=== PATIENT | female | born 1990 | race Hispanic/Latino ===

== ENCOUNTER 2019-06-04 20:38 | Emergency (ER) | payer SELFPAY ==
[2019-06-04] MEDS ORDERED: Ketorolac Tromethamine 60 MG/2 ML VIAL ONE (22:05)
[2019-06-04 22:36] LABS: Bilirubin Negative (Negative); Blood, Urine Negative (Negative); Clarity Clear (Clear); Glucose, Urine (Dipstick) Normal (Negative); Leukocyte 250 Leu/uL (Negative); Nitrite Negative (Negative); Protein, Urine (Dipstick) Negative (Neg-Trace); RBC/HPF 0-3 HPF (0-3); Squamous Epithelial 0-3 HPF (0-3); Urobilinogen Normal mg/dL (Less than 2)
[2019-06-04 22:37] LABS: Pregnancy Test - Urine (BHCG) Negative (Negative); Pregu Control Background? CLEAR/WHITE (CLR/WHITE); Pregu Control Bar Appear? YES (CONTROL BAR); Specific Gravity 1.008 (1.002-1.036)
[2019-06-04 22:43] LABS: Bacteria/HPF 1+ HPF (None Seen)
--- NOTE | 2019-06-04 22:48 | RAD ---
Exam: 3 views lumbar spine HISTORY: Left-sided flank pain and low back pain, x1 week COMPARISON: None FINDINGS: Pseudoarthrosis of the left L5 ala with the sacrum. Partial sacralization of L5. Lumbar spine vertebral body height is maintained. No fracture. No spondylolisthesis or spondylolysis. IMPRESSION: 1. No fracture. No severe loss of disc space height. 2. Partial sacralization of L5 with pseudoarthrosis of the left L5 ala and the sacrum.
== END 2019-06-04 23:00 | disposition home or self-care (01) ==
LOC: ERS 20:38
DX: N39.0 Urinary tract infection, site not specified (principal)
CPT/HCPCS: 72100; 81003; 81015; 81025; 96372; J1885

== ENCOUNTER 2019-06-20 17:34 | Inpatient (IN) | payer OTHER, SELFPAY ==
[2019-06-20] MEDS ORDERED: Ondansetron PF 4 MG/2 ML Vial ONE (18:29)
[2019-06-20] MEDS ORDERED: Morphine 4 MG/ML VIAL ONE ×2 (18:29→19:42)
[2019-06-20 18:56] LABS: #Basophils 0.1 thou/uL (0.0-0.2); #Eosinphils 0.4 thou/uL (0.0-0.7); #Lymphocytes 2.2 thou/uL (1.20-3.40); #Monocytes 0.6 thou/uL (0.11-0.59); #Neutrophils 5.6 thou/uL (1.40-6.50); %Basophils 0.7 % (0.0-1.0); %Eosinophils 4.8 % (0.0-10.0); %Lymphocytes 25.4 % (21.0-51.0); %Monocytes 6.5 % (0.0-10.0); %Neutrophils 62.7 % (42.0-75.0); Hemoglobin 15.4 g/dL (12.0-16.0); Mean Corpuscular HGB CONC 33.5 g/dL (32.0-36.0); Mean Corpuscular Hemoglobin 27.2 pg (27.0-31.0); Mean Corpuscular Volume 81.2 fL (78.0-98.0); Mean Platelet Volume 9.5 fL (7.4-10.4); Platelet Count 147 thou/uL (130-400); Red Blood Cell (RBC) Count 5.67 mill/uL (4.20-5.40); White Blood Cell (WBC) Count 8.9 thou/uL (4.8-10.8)
[2019-06-20 19:20] LABS: Bacteria/HPF None Seen HPF (None Seen); Bilirubin Negative (Negative); Blood, Urine Negative (Negative); Clarity Clear (Clear); Glucose, Urine (Dipstick) Normal (Negative); Leukocyte 75 Leu/uL (Negative); Nitrite Negative (Negative); Protein, Urine (Dipstick) Negative (Neg-Trace); RBC/HPF 0-3 HPF (0-3); Squamous Epithelial 0-3 HPF (0-3); Urobilinogen Normal mg/dL (Less than 2); WBC/HPF 0-3 HPF (0-3)
[2019-06-20 20:05] LABS: ALT (SGPT) 106 U/L (8-55); AST (SGOT) 131 U/L (5-34); Albumin 4.3 g/dL (3.5-5.0); Alkaline Phosphatase 88 U/L (40-110); Anion Gap 16 mmol/L (10-20); BUN (Urea Nitrogen) 6 mg/dL (7.0-18.7); Bilirubin, Total 0.6 mg/dL (0.2-1.2); Calc. Creatinine Clearance 0 mL/min (70-130); Carbon Dioxide 23 mmol/L (22-29); Chloride 102 mmol/L (98-107); Estimated GFR-MDRD 84; Globulin 3.2 g/dL (2.4-3.5); Glucose 83 mg/dL (70-105); Potassium 3.7 mmol/L (3.5-5.1); Protein, Total 7.5 g/dL (6.0-8.3); Sodium 137 mmol/L (136-145)
[2019-06-20 20:26] LABS: Calcium 12.2 mg/dL (7.8-10.44)
--- NOTE | 2019-06-20 20:31 | CT ---
CT CHEST, ABDOMEN AND PELVIS WITH IV CONTRAST: 06/20/19 INDICATIONS: Recent diagnosis of breast cancer. Back pain. Assess for metastasis. CT CHEST: The lung marc are well aerated and appear clear. No evidence of pulmonary mass or nodule. No infilt rate or effusion. Mediastinum unremarkable. A large mass in the right breast with low density center. This would correspond to the patient's hist ory of breast cancer. These findings may be postoperative if there has been recent surgery or biopsy. The findings may represent postoperative seroma or hematoma. If there has been no recent surgery, th e findings would be consistent with a large necrotic mass which measures up to 5 cm. Bone windows reveal several low density lytic type lesions involving the thoracic spine. These are sc attered throughout multiple thoracic vertebra and would be consistent with bony metastasis. IMPRESSION: 1. Large right breast mass as described above. 2. Evidence of bony metastasis involving the thoracic spine. 3. No acute lung process. CT ABDOMEN AND PELVIS: There are numerous low density lesions involving the liver which are too numerous to count and would be consistent with diffuse metastatic disease to the liver. These lesions measure up to 2.0 cm. Spleen and pancreas unremarkable. Adrenal glands and kidneys unremarkable. Small and large bowel loops unremarkable. Aorta unremarkable. No adenopathy. Images through the pelvis show unremarkable uterus and adnexa. Evidence of small right ovarian cysts. There is an umbilical hernia with mesenteric fat herniated through the small anterior abdominal wall defect. Review of bone windows show low density foci involving pelvis. Both iliac bones and sacrum show lesio ns. There are scattered low density lesions involving the lumbar vertebrae. IMPRESSION: 1. Evidence of diffuse hepatic metastatic disease. 2. Evidence of osseous metastasis involving numerous lumbar vertebrae and pelvis. 3. Small umbilical hernia. POS: OFF
[2019-06-20] MEDS ORDERED: Dexamethasone 10 MG/ML VIAL ONE (21:32)
--- NOTE | 2019-06-20 22:55 | PDOC.FPRHP ---
- History of Present Illness Chief Complaint: Back/Leg Pain History of Present Illness: Mrs. Lopez is a 28 y/o female who presents to the ED following increasing back back and leg weakness over the past month, with notable increase in pain over the past 2-3 days. She was diagnosed with breast cancer, with the primary mass occurring in her right breast, earlier in June 2019, and has since been followed by Dr. Strickland, and she intends to start chemotherapy soon. She states that her pain is currently poorly controlled with Tramadol 50 mg PO BID, and she most recently noticed a dramatic increase in pain in her back and legs, prompting her presentation to the ED. She admits to chronic fatigue, but denies recent fevers, chills, night sweats, changes in vision, chest pain, shortness of breath, N/V/D or loss of bowel or bladder function. Her family was present at the time of evaluation and assisted with the HPI when applicable. ED Course: CT Chest/ABD/Pelvis revealed multiple suspicious osseous and hepatic lesions. - Allergies/Adverse Reactions Allergies Allergy/AdvReac Type Severity Reaction Status Date / Time No Known Drug Allergies Allergy Unverified 06/20/19 23:37 - Home Medications Medication Instructions Recorded Confirmed Type No Known 06/20/19 06/20/19 History - History PMHx: None PSHx: None FHx: Social: Social EtOH. Denies tobacco and drug abuse. Code Status: Full - Review of Systems General: reports: fatigue. denies: fever/chills, weight/appetite/sleep changes , night sweats Eyes: denies: vision changes ENT: denies: nasal congestion, rhinorrhea Respiratory: reports: exercise intolerance. denies: cough, congestion, shortness of breath Cardiovascular: denies: chest pain, palpitation, edema, orthopnea Gastrointestinal: denies: nausea, vomiting, diarrhea, constipation, abdominal pain Genitourinary: denies: incontinence, dysuria, polyuria Skin: denies: rashes, lesions Musculoskeletal: reports: pain, tenderness, stiffness, arthritis/arthralgias Neurological: reports: weakness. denies: numbness, syncope - Vital signs BP: [124/88] HR: [105] RR: [22] Tmax: [97.7] Pox: [100]% on [Room Air] Wt: [ 78 kg] - Physical Exam Constitutional: NAD, awake, alert and oriented, well developed, other (Tired appearing.) HEENT: normocephalic and atraumatic, PERRLA, conjunctiva clear, no scleral icterus, grossly normal hearing, normal nasal mucosa, MMM, oropharynx clear, good dention Neck: supple, FROM, trachea midline, no LAD Chest: no-tender to palpation Heart: RRR, normal S1/S2, no murmurs/rubs/gallops, pulses present, no edema Lungs: CTAB, no respiratory distress, good air movement, no rales/rhonchi, no wheezing, no retractions Abdomen: soft, non-tender, bowel sounds present, no masses/distention, no hernias Musculoskeletal: normal structure, normal tone, ROM grossly normal Neurological: no focal deficit, normal sensation Skin: no rash/lesions, good turgor, capillary refill <2 seconds, no jaundice Heme/Lymphatic: no unusual bruising or bleeding, no purpura, no petechia, no LAD (No LAD in the Anterior Cervical Chains or Right Axilla.) Psychiatric: good judgment and insight, intact recent and remote memory, other ( Patient appeared significantly distressed by current situation.) FMR H&P: Results - Labs Result Diagrams: 06/20/19 18:47 06/20/19 19:35 Lab results: WBC 8.9 thou/uL (4.8-10.8) 06/20/19 18:47 Hgb 15.4 g/dL (12.0-16.0) 06/20/19 18:47 Hct 46.0 % (36.0-47.0) 06/20/19 18:47 MCV 81.2 fL (78.0-98.0) 06/20/19 18:47 Plt Count 147 thou/uL (130-400) 06/20/19 18:47 Neutrophils % 62.7 % (42.0-75.0) 06/20/19 18:47 Sodium 137 mmol/L (136-145) 19 19:35 Potassium 3.7 mmol/L (3.5-5.1) 06/20/19 19:35 Chloride 102 mmol/L (98-107) 06/20/19 19:35 Carbon Dioxide 23 mmol/L (22-29) 06/20/19 19:35 BUN 6 mg/dL (7.0-18.7) L 06/20/19 19:35 Creatinine 0.81 mg/dL (0.6-1.1) 06/20/19 19:35 Glucose 83 mg/dL (70-105) 06/20/19 19:35 Calcium 12.2 mg/dL (7.8-10.44) H* 06/20/19 19:35 Total Bilirubin 0.6 mg/dL (0.2-1.2) 06/20/19 19:35 AST 131 U/L (5-34) H 06/20/19 19:35 ALT 106 U/L (8-55) H 06/20/19 19:35 Alkaline Phosphatase 88 U/L (40-110) 06/20/19 19:35 Serum Total Protein 7.5 g/dL (6.0-8.3) 06/20/19 19:35 Albumin 4.3 g/dL (3.5-5.0) 06/20/19 19:35 Urine Ketones Negative mg/dL (Negative) 06/20/19 18:30 Urine Blood Negative (Negative) 06/20/19 18:30 Urine Nitrite Negative (Negative) 06/20/19 18:30 Ur Leukocyte Esterase 75 Lucrecia/uL (Negative) A 06/20/19 18:30 Urine RBC 0-3 HPF (0-3) 06/20/19 18:30 Urine WBC 0-3 HPF (0-3) 06/20/19 18:30 Ur Squamous Epith Cells 0-3 HPF (0-3) 06/20/19 18:30 Urine Bacteria None Seen HPF (None Seen) 06/20/19 18:30 FMR H&P: A/P - Problem List (1) Metastatic breast cancer Current Visit: Yes Status: Acute Code(s): C50.919 - MALIGNANT NEOPLASM OF UNSP SITE OF UNSPECIFIED FEMALE BREAST (2) Hypercalcemia Current Visit: Yes Status: Acute Code(s): E83.52 - HYPERCALCEMIA - Plan Patient is a 28 y/o female currently admitted to the Oncology Floor for intractable back pain and lower extremity weakness. 1. Metastatic Breast Cancer -Likely cause of aforementioned symptoms -No significant MSK or neurologic deficits noted on physical exam -CT Chest/ABD/Pelvis: Diffuse osseous and hepatic metastases -s/2 Morphine 4 mg IV x2 in ED -Started on Dexamethasone 4 mg Q6H, per Oncology Recs -MRI T-Spine / L-Spine (w/ and w/o Contrast): Pending, per Oncology recs -Tramadol 50 mg PO Q4H PRN for pain -Morphine 4 mg IV Q4H PRN for breakthrough pain -Oncology aware - recs appreciated 2. Hypercalcemia -Ca: 12.3 on 06/20/19 -Patient is currently asymptomatic -Consider IVF and Zoledronic Acid if patient develops symptoms PCP: [facility] (Dr. Strickland) Code: Full Diet: Heart Healthy incl. Low Sodium Activity: Ambulate w/ Assist VTE PPx: Lovenox 40 mg SC Daily w/ SCDs Dispo: Patient is currently stable on the Oncology Floor. Continue to manage pain and monitor electrolyte abnormalities. Await MRI results and Oncology recommendations. Expected LOS > 48H. FMR H&P: Upper Level - Pertinent history 28 y/o F PMHx Metastatic invasive ductal carcinoma of the breast that was recently diagnosed this past month presents to the ED complaining of left sided hip pain and back pain. She reports that she has been taking tramadol for pain, but today it did not cut it and the pain got so bad that she could not stand or walk well. She has known bony mets to thoracic and lumbar spines as well as pelvis. She was due this week to have an MRI performed, so Dr. Strickland requested this get performed while in the hospital. She has had regular periods, 3 vaginal deliveries. Has been on IUD and more recently has nexplanon in currently for contraception. Family history of breast cancer on fathers side and family history of cervical spine cancer in maternal grandmother. - Pertinent findings BP: 132/97, Pulse: 96, Resp: 18, Temp: 98.5, O2 sat: 98, weight 77kg PE: Gen - alert, oriented, resting comfortably in bed with no acute distress CV - RRR, no murmurs Lungs - CTAB, no wheezes Abd - soft, NTTP MSK - Left pelvis tender to palpation posteriorly and spinal tenderness CT chest/abd/pelvis: R breast mass, bony thoracic mets, diffuse hepatic metastatic disease, bony mets to lumbar spine and pelvis, small umbilical hernia - Plan Date/Time: 06/20/19 2255 IJody MD, PGY-3, have evaluated this patient and agree with findings/ plan as outlined by general internal medicine physician resident. Pertinent changes/additions are listed here. 1. Intractable pain 2/2 bony metastases Pt with invasive ductal carcinoma of R breast with mets to lymphatic system, liver, spine, pelvis, currently with back and pelvic pain. s/p 2 doses of morphine in ED. -Will obs on oncology -Dr. Strickland with onc has been notified and will be consulted in AM -Tramadol rosenda and morphine prn pain -Encourage po hydration 2. Invasive Ductal Carcinoma of breast Pt noticed breast mass in Mar and had diagnostic imaging followed by biopsy confirming diagnosis. She has been followed with Dr. Strickland, but further imaging was pending prior to initiation of therapy. -Will get MRI in AM per onc recs -Continue dexamethasone 4mg q6h -Consult Dr. Strickland in AM 3. Hypercalcemia 2/2 malignancy. Was 12.2, corrected 12.0, moderate hypercalcemia. Pt asymptomatic from this -Will monitor and treat if increases to severe range or develops symptoms 4. Transaminitis Pt with elevated AST and ALT, likely 2/2 liver mets -Monitor Dispo: Obs on onc LOS: likely less than 48 hours Addendum - Attending - Attending Attestation Date/Time: 06/20/19 [id number] I personally evaluated the patient and discussed the management with Dr. Muse and Dr. Mathis I agree with the History, Examination, Assessment and Plan documented above with any addition or exceptions noted below. 28 yo female with recent dx of invasive ductal carcinoma (ERPR negative , HER2 positive) presents for worsening pain. Patient reports increasing and unrelenting pain over the past few days. Has been seen by ONC. Plan to cotton scan and start treatment course soon. Imaging performed today and mets noted throughout. ONC notified by ER staff. Will admit for pain control and initiation of steroids. Will plan to perform MRI head to pelvis in AM. Patient evaluated in March with mass in right breast. Dx with invasive ductal carcinoma this month. Will continue IVFs to help with calcium level. Pain control. Imaging in AM. ONC following. Will determine plan with ONC in AM. Likely poor prognosis. Stephane
[2019-06-20] MEDS ORDERED: Acetaminophen 325 MG TAB PO PRN (23:30)
[2019-06-21 00:12] VITALS: BMI 27.6
[2019-06-21] MEDS: traMADol HCl 50 MG TAB PO SCH ×2 (00:30→05:12)
[2019-06-21] MEDS: Morphine 4 MG/ML VIAL SLOW IVP PRN ×3 (01:18→20:01)
[2019-06-21] MEDS ORDERED: Dexamethasone 4 MG TAB PO SCH (03:30)
[2019-06-21] MEDS: Dexamethasone 4 MG TAB PO SCH ×3 (05:16→17:48)
--- NOTE | 2019-06-21 05:51 | PDOC.FM ---
- Subjective Subjective: Patient resting comfortably in bed this morning, her mother is at bedside. Patient states she is having some back and left hip pain. Says current pain medication is controlling her pain, the pain starts to come back after about 4 hours, about the time she is due for next pain medication. Patient declines wanting any adjustment to her pain medication regimen at this time. Prior to this admission patient states she was not taking anything for pain. Recently did have ECHO completed with Dr. Strickland. Will have MRI completed today. Patient says she has some anxiety about this scan, also get claustrophobic in small spaces. - Objective Vital Signs & Weight: Vital Signs (12 hours) Temp Pulse Resp BP Pulse Ox 06/21/19 03:44 98.3 F 97 16 116/72 96 06/20/19 23:20 98.5 F 95 18 122/74 96 Weight Weight 77.56 kg Result Diagrams: 06/20/19 18:47 06/20/19 19:35 Phys Exam - Physical Examination Constitutional: NAD HEENT: moist MMs Neck: supple, full ROM Respiratory: no wheezing, no rales, no rhonchi, clear to auscultation bilateral Cardiovascular: RRR, no significant murmur Gastrointestinal: soft, no distention, positive bowel sounds mild TTP in RUQ, LUQ Musculoskeletal: no edema, pulses present Neurological: normal sensation, moves all 4 limbs Psychiatric: normal affect, A&O x 3 Skin: no rash, normal turgor Dx/Plan (1) Hypercalcemia Code(s): E83.52 - HYPERCALCEMIA Status: Acute (2) Metastatic breast cancer Code(s): C50.919 - MALIGNANT NEOPLASM OF UNSP SITE OF UNSPECIFIED FEMALE BREAST Status: Acute (3) Intractable pain Code(s): R52 - PAIN, UNSPECIFIED Status: Acute - Plan Plan: Patient is a 28 yo female with PMHx of metastatic breast cancer presents with intractable pain: #Intractable pain 2/2 bony metastases Pt with invasive ductal carcinoma of R breast with mets to lymphatic system, liver, spine, pelvis, currently with back and pelvic pain. s/p 2 doses of morphine in ED. -Dr. Strickland with oncology has been notified and will be consulted in AM -Tramadol prn and morphine 4 prn pain -Encourage po hydration #Invasive Ductal Carcinoma of breast Pt noticed breast mass in Mar and had diagnostic imaging followed by biopsy confirming diagnosis. She has been followed with Dr. Strickland, but further imaging was pending prior to initiation of therapy. -CT chest/abd/pelvis on 06/20: R breast mass, bony thoracic mets, diffuse hepatic metastatic disease, bony mets to lumbar spine and pelvis, small umbilical hernia -Will get MRI in AM per onc recs--ordered 1 mg Ativan to be given 30 min prior to exam -Continue Dexamethasone 4mg q6h -Consult Dr. Strickland in AM #Hypercalcemia 2/2 malignancy. Was 12.2, corrected 12.0, moderate hypercalcemia. Pt asymptomatic from this -Will monitor and treat if increases to severe range or develops symptoms #Transaminitis Pt with elevated AST and ALT, likely 2/2 liver mets -Monitor labs Diet: HH, Low Na VTE: Lovenox 40 Code status: FULL Dispo: Stable, admitted to observation on oncology unit. Continue pain control. Await results of MRI this morning. Oncology, Dr. Strickland consulted, appreciate recs. Anticipate discharge in <48 hrs. Addendum - Attending - Attending Attestation Date/Time: 06/21/19 [id number] I personally evaluated the patient and discussed the management with the team. I agree with the History, Examination, Assessment and Plan documented above with any addition or exceptions noted below.
[2019-06-21] MEDS: Famotidine 20 MG TAB PO SCH ×2 (08:02→20:01)
[2019-06-21] MEDS ORDERED: Lorazepam 2 MG/ML VIAL SLOW IVP SCH (08:15)
[2019-06-21] MEDS: Enoxaparin Sodium 40 MG/0.4 ML SYRINGE SC SCH (09:00)
[2019-06-21] MEDS ORDERED: traMADol HCl 50 MG TAB PO PRN (09:15)
[2019-06-21] MEDS: Zoledronic Acid 4 MG in Sodium Chloride 0.9% 100 ML IVPB SCH ×2 (10:00→12:06)
--- NOTE | 2019-06-21 10:13 | MRI ---
MR OF THE THORACIC SPINE WITH AND WITHOUT CONTRAST INDICATION: Metastatic breast cancer and back pain TECHNIQUE: Multiplanar multisequence MR images were obtained of the thoracic spine with and without c ontrast. Spine count series was provided. COMPARISON: CT of the chest, abdomen and pelvis dated June 20, 2019 FINDINGS: 15 cc of MultiHance was utilized for the examination. Bone marrow signal intensity: There is diffuse osseous metastatic disease involving the thoracic spin e with the most prominent lesion involving T11 where there is some posterior expansion of the posterior wall the T11 vertebral body without evidence of fracture. The lesion measures 2.3 cm in its greatest craniocaudad dimension and 2.9 cm in its greatest axial dimension. Spinal alignment: Normal Spinal cord: Normal signal intensity and contour. Paravertebral soft tissues: There are numerous lesions involving the liver consistent with hepatic me tastatic disease. Vertebral levels: T1-T2: No appreciable central canal or neural foraminal narrowing is evident. T2-T3: There is a small right paracentral protrusion without appreciable central canal or neural fora chavez narrowing. T3-T4: No appreciable central canal or neural foraminal narrowing.. T4-T5: No appreciable central canal or neural foraminal narrowing. T5-T6: No appreciable central canal or neural foraminal narrowing. T6-T7: No appreciable central canal or neural foraminal narrowing. T7-T8: No appreciable central canal or neural foraminal narrowing. T8-T9: No appreciable central canal or neural foraminal narrowing. T9-T10: No appreciable central canal or neural foraminal narrowing. T10-T11: No appreciable central canal or neural foraminal narrowing. T11-T12: No appreciable central canal or neural foraminal narrowing. T12-L1: No appreciable central canal or neural foraminal narrowing. Additional findings: There is diffuse osseous metastatic disease demonstrates heterogeneous enhancem ent IMPRESSION: 1. Diffuse osseous metastatic disease of the thoracic spine without evidence of pathologic fracture. The largest lesion is seen within T11 causing some mild posterior bowing of the T11 cortex. 2. Spinal cord demonstrates normal signal intensity and contour.
--- NOTE | 2019-06-21 10:16 | MRI ---
MRI LUMBAR SPINE WITH AND WITHOUT CONTRAST: DATE: 06/21/2019 HISTORY: 28-year-old female with metastatic breast cancer presents with intractable low back pain and left hip pain. COMPARISON: none TECHNIQUE: Multiple sequences obtained in axial and sagittal planes, pre and post IV injection of gadolinium-bas ed contrast agent. FINDINGS: There are transitional levels at the thoracolumbar junction and lumbosacral junction. Review of CT of chest abdomen and pelvis of 06/20/2019 demonstrates 12 fully formed bilateral Ribs, followed by an accessory right rib at the next level which will be designated as L1. The transitional level at the lumbosacral junction will be designated as L6,, with the dysplastic lef t transverse process completely fused with the left sacral ala, but no such finding on the right side. At the left side of the L2 superior endplate, there is minimal, shallow, broad-based depression, asso ciated with moderate-sized patch of bone marrow edema (STIR sagittal image 10 of 18, series 5). Vertebral body heights are otherwise maintained. There is a dextroscoliosis of the lumbar spine. No m ajor spondylolisthesis. Hypoplastic L6-S1 disc space. Disc desiccation without high-grade disc space narrowing of L5-6, where there is a small central disc protrusion which does not cause high-gra de central spinal canal stenosis or reji nerve root compression. There are mild to moderate bilateral degenerative facet changes at L4-5 and L5-6, with bilateral facet joint effusions. There is mild to moderate left neural foraminal stenosis at L5-6. Otherwise no high-grade neural foraminal stenosis at any other level. No central spinal canal stenosis at any level. Cauda equina is arranged in a symmetrical, normal distribution throughout the thecal sac. Conus medullaris terminates at L1-2. No abnormal enhancement or mass involving the intramedullary, extramedullary-intradural, extrad ural, or perivertebral, spaces. There are numerous focal metastatic lesions throughout all osseous structures. The largest lesion involves the L2 vertebral body. All of these enhance. No bony retropul curt. IMPRESSION: 1. Osseous metastatic disease throughout all visualized levels of the lumbar spine and sacrum. 2. No evidence of metastatic involvement within the spinal canal. 3. Lumbosacral transitional vertebra type III a involving L6-S1. 4. Mild degenerative disc disease at L6-S1. 5. Mild to moderate bilateral facet osteoarthrosis at L4-5 and L5-6. 6. Dextroscoliosis of lumbar spine. 7. Mild to moderate left neural foraminal stenosis at L5-6. 8. Otherwise no central spinal canal stenosis or high-grade neural foraminal stenosis at any level. 9. Possibility of a minimal pathologic compression fracture of the left superior endplate of L2. 10. No bony retropulsion.
--- NOTE | 2019-06-21 10:26 | MRI ---
MRI cervical spine with and without contrast: DATE: 06/21/2019 HISTORY: 28-year-old female with metastatic breast cancer and intractable cervicalgia. COMPARISON: None FINDINGS: On the sagittal sequences, there is an approximately 1 x 1.3 cm intrasellar mass. The anterior half o f it has material that is isointense to brain parenchyma on all pulse sequences, and enhances. The posterior aspect of this appears cystic, but contains tiny solid enhancing nodular components. The se lla turcica may or may not be minimally expanded. It may be at least mildly impinging on the optic chiasm. There are numerous small osseous enhancing metastatic lesions throughout all vertebral bodies of the cervical spine and upper thoracic spine. There is reversal of curvature, with apex of kyphosis at approximately C5, which abuts the ventral surface of the spinal cord. However, there is no significan t displacement of the spinal cord, no central spinal canal stenosis, no nerve root impingement, and no neural foraminal stenosis, at any level. No abnormal signal or abnormal enhancement involving the intramedullary, extramedullary-intradural, extradural, or perivertebral, spaces. No high-grade disc space narrowing. No high-grade facet DJD. Vertebral body heights are maintained. No bony retropulsion . Osseous metastatic involvement of the clivus and body of sphenoid bone.. IMPRESSION: 1. Enhancing pituitary mass. Possibilities include pituitary metastasis versus atypical pituitary mac roadenoma or craniopharyngioma. Possibility of mild impingement on optic chiasm. Recommend dedicated MRI of brain and sella with and without contrast. 2. Diffuse osseous skeletal metastasis throughout the cervical spine. 3. No pathologic fracture, central spinal canal stenosis, neural foraminal stenosis, or cord compress ion, at any level. No evidence of metastatic disease within the spinal canal.
[2019-06-21] MEDS ORDERED: traMADol HCl 50 MG TAB PO SCH (12:00)
[2019-06-21] MEDS: Sodium Chloride 0.9% 1,000 ML IV SCH ×2 (12:05→12:14)
[2019-06-21] MEDS: Lorazepam 2 MG/ML VIAL SLOW IVP SCH ×2 (12:12→15:02)
--- NOTE | 2019-06-21 15:36 | NM ---
WHOLE BODY BONE SCAN: HISTORY: Breast cancer RADIOPHARMACEUTICAL: 30 mCi technetium 99m-MDP injected intravenously COMPARISON: None CORRELATION: CT chest abdomen and pelvis of 06/20/2019 and MRI of the spine from today. FINDINGS: There are foci of increased uptake in the sacrum bilaterally consistent with metastatic disease. The remainder of the lesions seen on the CT scan and MRI do not demonstrate abnormal tracer localization likely due to the lytic nature. There scattered degenerative activity in the appendicular skeleton. Tracer excretion through the kidneys is within normal limits. IMPRESSION: Findings are consistent with osseous metastatic disease.
--- NOTE | 2019-06-21 16:19 | CON ---
DATE OF CONSULTATION: REASON FOR CONSULTATION: Breast cancer. HISTORY OF PRESENT ILLNESS: Ms. Lopez is a pleasant 28-year-old female, who was referred to our clinic for newly diagnosed breast cancer. She was in her usual state of health when she felt a palpable mass in her right breast in January of 2019. In May, she underwent a right breast ultrasound, which showed a large solid mass in the right lower quadrant. There was also enlarged lymph nodes in the right axilla. She underwent biopsy, and pathology showed ER/KS negative, HER-2 positive invasive ductal carcinoma. Her right axillary lymph node was biopsied and was positive for metastatic adenocarcinoma with breast primary. She was seen by Dr. Strickland and was to undergo further imaging for scanning. She did complain of back pain when she was seen by Dr. Strickland and was given a muscle relaxant and tramadol. She presented to the emergency room yesterday with intractable pain. She underwent a CT of the chest, abdomen, and pelvis, which showed diffuse liver metastasis as well as bony lesions. She had then undergone MRI of her cervical, thoracic, and lumbar spine confirming the bony lesions. On the cervical spine MRI, there was an enhancing pituitary mass. The patient is having no neurological symptoms. She complains of back pain only. She has been treated with morphine, which has managed her pain. PAST MEDICAL HISTORY: Newly diagnosed right breast cancer. PAST SURGICAL HISTORY: Breast biopsy. ALLERGIES: NO KNOWN DRUG ALLERGIES. HOME MEDICATIONS: Tramadol. FAMILY HISTORY: Her paternal grandfather had liver cancer. Maternal grandmother had an unknown type cancer of the spine. She has no family history of breast, ovarian, or uterine cancer. SOCIAL HISTORY: , has 3 children. Lives with her spouse and family. No alcohol, tobacco, or illicit drug use. REVIEW OF SYSTEMS: Positive for back pain. Otherwise, negative. PHYSICAL EXAMINATION: VITAL SIGNS: Temperature 98.7, pulse is 101, respiratory rate is 16, BP is 118/69. She is 98% on room air. GENERAL: Well-developed, well-nourished female, in no acute distress. HEENT: Normocephalic and atraumatic. Pupils are equal and reactive to light. NECK: Supple. CV: Regular rate and rhythm. LUNGS: Clear. ABDOMEN: Soft and nontender. Bowel sounds are positive. EXTREMITIES: No clubbing or cyanosis. SKIN: No rash. BREASTS: She has palpable right breast mass. NEUROLOGIC: Nonfocal. PSYCHIATRIC: She is alert, oriented, and appropriate. PERTINENT LABS AND X-RAYS: Current WBCs are 8.9, hemoglobin 15.4, hematocrit 46.0, platelet count is 147,000. She has 62% neutrophils, 25% lymphocytes. Sodium is 137, potassium 3.7, chloride 102, CO2 is 23, BUN is 6, creatinine 0.81, calcium 12.2, bilirubin 0.6, AST is 131, ALT is 106, alkaline phosphatase is 88, serum total protein is 7.5, albumin 4.3, globulin 4.2. UA is negative. Radiology, per HPI. ASSESSMENT: 1. Metastatic invasive ductal carcinoma of the right breast with liver and bony lesions. 2. Back pain secondary to bone lesions. 3. 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 4. Hypercalcemia. DISCUSSION: The patient will receive Zometa for her hypercalcemia. We will complete staging with a bone scan and echocardiogram. She will have a brain MRI to take a close look at the pituitary mass. Findings were discussed in detail with the patient and her family at bedside. The plan is to start treatment with Taxotere, carboplatin, Perjeta, and Herceptin as soon as she has been cleared. Case has been discussed in detail with Dr. Strickland. Thank you for the consult. Job ID: [id number]
[2019-06-21] MEDS ORDERED: diphenhydrAMINE 50 MG CAP PO PRN (17:57)
[2019-06-21] MEDS ORDERED: diphenhydrAMINE 12.5 MG/5 ML UDCUP PO PRN (17:57)
[2019-06-22] MEDS: Dexamethasone 4 MG TAB PO SCH ×4 (00:10→17:32)
[2019-06-22] MEDS: HYDROcodone/Acetaminophen 5/325 mg Tablet PO PRN ×4 (00:10→17:35)
[2019-06-22] MEDS: Sodium Chloride 0.9% 1,000 ML IV SCH ×2 (00:13→11:40)
[2019-06-22] MEDS ORDERED: Lorazepam 2 MG/ML VIAL SLOW IVP PRN (03:28)
[2019-06-22 04:19] LABS: ALT (SGPT) 73 U/L (8-55); AST (SGOT) 72 U/L (5-34); Alkaline Phosphatase 75 U/L (40-110); Anion Gap 14 mmol/L (10-20); BUN (Urea Nitrogen) 5 mg/dL (7.0-18.7); Bilirubin, Total 0.4 mg/dL (0.2-1.2); Calc. Creatinine Clearance 137 mL/min (70-130); Calcium 10.3 mg/dL (7.8-10.44); Carbon Dioxide 21 mmol/L (22-29); Chloride 110 mmol/L (98-107); Estimated GFR-MDRD Greater than 90; Glucose 162 mg/dL (70-105); Potassium 3.6 mmol/L (3.5-5.1); Sodium 141 mmol/L (136-145)
[2019-06-22] MEDS: Morphine 4 MG/ML VIAL SLOW IVP PRN (04:34)
--- NOTE | 2019-06-22 06:31 | PDOC.FM ---
- Subjective Subjective: Patient lying in bed, states her pain is controlled. When does have pain it is mostly located in her back and hips. Able to tolerate PO intake although appetite sometimes decreased. Patient and her mother were able to meet with electrophysiology nurse practitioner Father Robert yesterday which brought them great comfort. Patient's sister says their [place] electrophysiology nurse practitioner Father Lior is supposed to come visit today. Myself and Dr. Chiu had an extended discussion is had with patient and several family members this morning regarding patient's condition, results of imaging, goals of care, possible treatment options moving forward, and prognosis. Spent time answering both patient and family members questions as well as provide some supportive counseling. - Objective Vital Signs & Weight: Vital Signs (12 hours) Temp Pulse Resp BP Pulse Ox 06/22/19 03:38 98.5 F 81 16 134/83 97 06/21/19 23:36 97.9 F 76 16 128/82 97 06/21/19 20:00 98.3 F 100 16 118/80 97 Weight Weight 77.56 kg I&O: 06/20/19 06/21/19 06/22/19 06:59 06:59 06:59 Intake Total 360 Balance 360 Result Diagrams: 06/20/19 18:47 06/22/19 03:33 Phys Exam - Physical Examination Constitutional: NAD HEENT: moist MMs Neck: supple, full ROM Musculoskeletal: no edema, pulses present Neurological: normal sensation, moves all 4 limbs Psychiatric: A&O x 3 Deviation from normal: flat affect Skin: no rash, normal turgor Dx/Plan (1) Hypercalcemia Code(s): E83.52 - HYPERCALCEMIA Status: Acute (2) Metastatic breast cancer Code(s): C50.919 - MALIGNANT NEOPLASM OF UNSP SITE OF UNSPECIFIED FEMALE BREAST Status: Acute (3) Intractable pain Code(s): R52 - PAIN, UNSPECIFIED Status: Acute - Plan Plan: Patient is a 28 yo female with PMHx of metastatic breast cancer presents with intractable pain: #Intractable pain 2/2 bony metastases Pt with invasive ductal carcinoma of R breast with mets to lymphatic system, liver, spine, pelvis, currently with back and pelvic pain. s/p 2 doses of morphine in ED. -Dr. Strickland with oncology consulted, appreciate recs -Tramadol prn and morphine 4 prn pain -Encourage po hydration -MRI cervical/thoracic/lumbar spine on 06/21 consistent with findings on CT with bony metastases in every vertebral level, additionally mass seen within pituitary with recommended f/u brain MRI to be performed on 06/22 #Invasive Ductal Carcinoma of breast Pt noticed breast mass in Sept and had diagnostic imaging followed by biopsy confirming diagnosis. She has been followed with Dr. Strickland, but further imaging was pending prior to initiation of therapy. -CT chest/abd/pelvis on 06/20: R breast mass, bony thoracic mets, diffuse hepatic metastatic disease, bony mets to lumbar spine and pelvis, small umbilical hernia -MRI spine as above, MRI brain today--ordered 1 mg Ativan to be given 30 min prior to exam -Continue Dexamethasone 4mg q6h -Consult Oncology, Dr. Strickland--appreciate recs. Patient to be started on chemotherapy regimen, will need to be scheduled for mediport placement with Dr. Winter as an outpatient. Patient has not been financially cleared to start chemo at hospital, anticipate approval next week and then will start treatment. If brain mets seen today then will possibly receive radiation first. -ECHO: EF 50-55% #Hypercalcemia 2/2 malignancy. Was 12.2, corrected 12.0, moderate hypercalcemia. Pt asymptomatic from this. As of 06/22, Calcium 10.3 -Will monitor AM BMP and treat if increases to severe range or develops symptoms -PTH 6.0 (low) -Vitamin D 11.5 (low), plan to start vitamin D supplementation today #Transaminitis Pt with elevated AST and ALT, likely 2/2 liver mets -Monitor labs, trending down Diet: HH, Low Na VTE: Lovenox 40 Code status: FULL Social: Continue to provide support to patient, answer questions as they arise. Will plan to have another family meeting in early afternoon once her parents and can come to the hospital. Dispo: Stable, admitted to inpatient on oncology unit. Continue pain control. Await results of MRI this morning. Oncology, Dr. Strickland consulted, appreciate recs. Anticipate discharge after imaging studies completed today.
[2019-06-22 08:47] VITALS: BP 125/80
[2019-06-22] MEDS ORDERED: Polyethylene Glycol 3350 17 GM Packet PO SCH (09:00)
[2019-06-22] MEDS ORDERED: Calcitonin,Salmon,Synthetic 200 Units 3.7 ML PUMP L NARE SCH (10:00)
[2019-06-22] MEDS: Famotidine 20 MG TAB PO SCH (10:06)
[2019-06-22] MEDS: Enoxaparin Sodium 40 MG/0.4 ML SYRINGE SC SCH (10:07)
--- NOTE | 2019-06-22 11:03 | MRI ---
MRI BRAIN AND SELLA WITH AND WITHOUT CONTRAST: 06/22/2019 HISTORY: A 28-year-old female with metastatic breast cancer (diffuse skeletal metastasis). Intrasellar mass fo und on recent cervical spine MRI. TECHNIQUE: Multiplanar, multisequence MRI of the whole brain, plus additional thin slices through the sella turc ica, obtained pre and post IV injection of 7 mL of MultiHance Gadolinium-based contrast agent. FINDINGS: Osseous metastatic lesions involving the body of the sphenoid bone and the upper cervical vertebrae a re again noted. There is an approximately 1.4 x 1.9 x 1.1 cm mass filling the sella turcica. The sell a is not greatly expanded. Suprasellar component of the mass abuts the undersurface of the optic yan sm and mildly displaces it superiorly. The solid component of the tumor is T1, T2 and FLAIR isointens e relative to brain parenchyma, and moderately enhances. There is an approximately 0.8 x 1.2 x 0.6 cm component located posteriorly, which is very T2 hyperintense, very FLAIR hyperintense, and of mixed signal intensity on pre-contrast T1 WI, including T1 hyperintensity. This component has little or no enhancement. It appears to be cystic but filled with either hemorrhagic products or proteinaceous pro ducts. There are also tiny nodular components within this complex cystic component. There is no invasion of the tumor into the cavernous sinuses. Meckel's caves and the basal cisterns a re clear. The ventricles are normal in size and configuration. No abnormal intraaxial signal, mass, e nhancement, mass effect, midline shift or extraaxial fluid collection. IMPRESSION: 1. Intrasellar mass with a suprasellar component mildly impinging on the optic chiasm. The mass has s olid and complex cystic components. 2. Differential diagnosis is craniopharyngioma, pituitary macroadenoma with a cystic or hemorrhagic c omplex component, and metastatic lesion. POS: CET
[2019-06-22 15:03] LABS: Free T4 (Free Thyroxine) 0.45 ng/dL (0.70-1.48)
[2019-06-22 17:09] VITALS: TEMP 98.4
== END 2019-06-22 17:55 | disposition home or self-care (01) | DRG 948 ==
LOC: ERS 17:34 → OBSVTOIN 21:56 → ONC 21:56
PROVIDERS: ADMIT Student in an Organized Health Care Education/Training Program; ATTEND Student in an Organized Health Care Education/Training Program
DX: G89.3 Neoplasm related pain (acute) (chronic) (principal); C78.7 Secondary malignant neoplasm of liver and intrahepatic bile duct; C79.51 Secondary malignant neoplasm of bone; C77.9 Secondary and unspecified malignant neoplasm of lymph node, unspecified; C50.911 Malignant neoplasm of unspecified site of right female breast; E83.52 Hypercalcemia; Z80.3 Family history of malignant neoplasm of breast; Z80.8 Family history of malignant neoplasm of other organs or systems; E23.7 Disorder of pituitary gland, unspecified
CPT/HCPCS: 36415; 70553; 71260; 72156; 72157; 72158; 74177; 78306; 80053; 81003; 81015; 82306; 83970; 84146; 84436; 84439; 84443; 84481; 85025; 93005; 93306; 94760; 96361; 96374; 96375; 96376; A9503; J1100; J1650; J2060; J2270; J2405; J3489; J3490; J8540; Q0163

== ENCOUNTER 2019-07-06 06:01 | Day surgery (SDC) | payer MEDICAID, OTHER ==
[2019-07-05 12:03] VITALS: BMI 27.6
[2019-07-06] MEDS ORDERED: Fentanyl 100 MCG/2 ML VIAL ONE (06:09)
[2019-07-06] MEDS ORDERED: Lidocaine 2% Jelly 5 ML TUBE ONE (06:10)
[2019-07-06] MEDS ORDERED: Propofol 500 MG/50 ML VIAL ONE (06:10)
[2019-07-06 06:34] LABS: #Lymphocytes 1.1 thou/uL (1.20-3.40); #Monocytes 0.3 thou/uL (0.11-0.59); #Neutrophils 1.6 thou/uL (1.40-6.50); %Basophils 0.3 % (0.0-1.0); %Eosinophils 0.4 % (0.0-10.0); %Lymphocytes 35.8 % (21.0-51.0); %Monocytes 8.5 % (0.0-10.0); %Neutrophils 55.1 % (42.0-75.0); Hemoglobin 13.7 g/dL (12.0-16.0); Mean Corpuscular HGB CONC 32.2 g/dL (32.0-36.0); Mean Corpuscular Hemoglobin 26.3 pg (27.0-31.0); Mean Corpuscular Volume 81.8 fL (78.0-98.0); Mean Platelet Volume 8.6 fL (7.4-10.4); Platelet Count 227 thou/uL (130-400); RBC Distribution Width 12.3 % (11.5-14.5); Red Blood Cell (RBC) Count 5.21 mill/uL (4.20-5.40)
[2019-07-06] MEDS ORDERED: EPINEPHrine 1 MG/ML AMP ONE (06:38)
[2019-07-06] MEDS ORDERED: Lidocaine 2% PF 5 ML VIAL ONE (06:38)
[2019-07-06] MEDS ORDERED: Bupivacaine 0.25% HCL 30 ML VIAL ONE (06:38)
[2019-07-06 06:40] LABS: BHCG - Serum Negative (NEGATIVE); Pregs Control Background? CLEAR/WHITE (CLR/WHITE); Pregs Control Bar Appear? YES (CONTROL BAR)
[2019-07-06 06:51] LABS: Anion Gap 11 mmol/L (10-20); BUN (Urea Nitrogen) 14 mg/dL (7.0-18.7); Calc. Creatinine Clearance 152 mL/min (70-130); Calcium 8.2 mg/dL (7.8-10.44); Carbon Dioxide 23 mmol/L (22-29); Chloride 110 mmol/L (98-107); Estimated GFR-MDRD Greater than 90; Glucose 111 mg/dL (70-105); Potassium 4.1 mmol/L (3.5-5.1); Sodium 140 mmol/L (136-145)
[2019-07-06] MEDS ORDERED: Midazolam HCl 2 mg/2 ml Vial ONE (07:11)
[2019-07-06] MEDS ORDERED: Hydrocortisone Sod Succ/PF 100 mg/2 ml Vial ONE (08:25)
--- NOTE | 2019-07-06 09:14 | RAD ---
EXAM: XR Chest 1 View Portable PROVIDED CLINICAL HISTORY: Mediport placement COMPARISON: None FINDINGS: Cardiac and mediastinal silhouette is within normal limits. Bibasilar subsegmental atelectatic change . Left subclavian implanted port is noted, with tip projecting expected location of cavoatrial junction. No pleural fluid or pneumothorax apparent. IMPRESSION: No evidence for an acute cardiopulmonary process.
--- NOTE | 2019-07-11 15:46 | PDOC.OP ---
Operative Note - Operative Note Operative Note: PROCEDURE: Left subclavian MediPort placement with fluoroscopic guidance DATE OF PROCEDURE: 07/06/2019 SURGEON: Redd Winter M.D. PREOPERATIVE DIAGNOSIS: Breast cancer POSTOPERATIVE DIAGNOSIS: Breast cancer HISTORY: Patient has been diagnosed with metastatic right breast cancer. Chemotherapy has been recommended and a Mediport has been requested for this. OPERATIVE PROCEDURE IN DETAIL: After informed consent was obtained and appropriate preoperative antibiotics administered, the patient was taken to the operating room and placed in supine position and monitored anesthesia care was administered. The patient was then placed in Trendelenburg position and the subclavian vein accessed easily on the first attempt with excellent flow of dark venous non-pulsatile blood. A wire threaded easily and was confirmed to be in the superior vena cava by fluoroscopy. Additional local anesthesia was infused to the skin and subcutaneous tissues lateral and inferior to the access site. The skin incision was extended from the wire laterally and a subcutaneous pocket developed inferiorly. A Mediport was obtained and confirmed to fit in the subcutaneous pocket. This was secured inferiorly to the pectoralis fascia with a Prolene suture, which was clamped, but not tied. The dilator and sheath were then placed over the wire and the dilator and wire removed leaving the sheath in place. The clamped MediPort tubing was tunneled through the sheath, which was then split and removed leaving the MediPort tubing in place. The tubing was adjusted until the tip was confirmed by fluoroscopy to be in the superior vena cava just above the atrium. The tubing was clamped at the skin level and cut and the tubing secured to the port, which was then placed in the subcutaneous pocket. The previously placed suture was secured and two additional sutures were placed to fix the port in place within the pocket. The port was aspirated with the Lopez needle and had excellent flow of dark venous non-pulsatile blood and easily flushed without resistance. The subcutaneous tissues were closed with a running Monocryl suture , following which the skin was closed with a running subcuticular Monocryl suture. Dermabond dressings were placed and the hub was again accessed through the skin and confirmed to easily aspirate and easily flush. The course of the catheter was confirmed by fluoroscopy to be smooth with the tip appropriately located in the superior vena cava. The patient was taken back to the day stay unit in good condition. Estimated blood loss was minimal. There were no complications. There were no specimens.
== END 2019-07-06 10:03 | disposition home or self-care (01) ==
LOC: SDC 06:01
PROVIDERS: ATTEND Surgery
PROC: 02HV33Z Insertion of Infusion Device into Superior Vena Cava, Percutaneous Approach (ICD-10-PCS; principal; 2019-07-06)
DX: C50.911 Malignant neoplasm of unspecified site of right female breast (principal)
CPT/HCPCS: 36415; 71045; 80048; 84703; 85025; C1788; J0171; J0690; J1642; J1720; J2001; J2250; J2704; J3010; S0020

== ENCOUNTER 2019-07-20 11:44 | Day surgery (SDC) | payer MEDICAID, SELFPAY ==
[~2019-07-20 11:44] MED LIST: DOCEtaxel 140 MG in Sodium Chloride 0.9% 250 ML 250 ML IVPB SCH; Palonosetron HCl 0.25 MG in Sodium Chloride 0.9% 50 ML IVPB SCH; Pertuzumab 840 MG in Sodium Chloride 0.9% 250 ML 250 ML IVPB SCH; SODIUM CHLORIDE 0.9% IVPB SCH; TRASTUZUMAB ANNS IVPB SCH; Zoledronic Acid 4 MG in Sodium Chloride 0.9% 100 ML IVPB SCH; diphenhydrAMINE 50 MG in Sodium Chloride 0.9% 50 ML IVPB SCH
[2019-07-20] MEDS ORDERED: Sodium Chloride 0.9% 20 ML ONE (11:55)
[2019-07-20 12:27] VITALS: BP 123/91; TEMP 98.4
[2019-07-20] MEDS ORDERED: SODIUM CHLORIDE 0.9% IV ONE (12:59)
[2019-07-20] MEDS ORDERED: TRASTUZUMAB ANNS IV ONE (12:59)
== END 2019-07-20 16:33 | disposition home or self-care (01) ==
LOC: ONC/OP 11:44
PROVIDERS: ATTEND Internal Medicine Hematology & Oncology
DX: Z51.11 Encounter for antineoplastic chemotherapy (principal); C50.511 Malignant neoplasm of lower-outer quadrant of right female breast
CPT/HCPCS: 36415; 80053; 82248; 83615; 84100; 84443; 84550; 96375; 96413; 96417; J1100; J1200; J1642; J2469; J3489; J3490; J7050; J9171; J9306; Q5117

== ENCOUNTER 2019-08-10 12:01 | Day surgery (SDC) | payer MEDICAID ==
[~2019-08-10 12:01] MED LIST changes: +Pertuzumab 420 MG in Sodium Chloride 0.9% 250 ML 250 ML IVPB SCH; -Pertuzumab 840 MG in Sodium Chloride 0.9% 250 ML 250 ML IVPB SCH; -Zoledronic Acid 4 MG in Sodium Chloride 0.9% 100 ML IVPB SCH; -diphenhydrAMINE 50 MG in Sodium Chloride 0.9% 50 ML IVPB SCH
== END 2019-08-10 15:35 | disposition home or self-care (01) ==
LOC: ONC/OP 12:01
PROVIDERS: ATTEND Internal Medicine Hematology & Oncology
DX: Z51.11 Encounter for antineoplastic chemotherapy (principal); C50.511 Malignant neoplasm of lower-outer quadrant of right female breast; E83.52 Hypercalcemia
CPT/HCPCS: 36415; 80053; 82248; 83615; 84100; 84550; 86300; 96375; 96413; 96417; J1100; J2469; J7050; J9171; J9306; Q5117

== ENCOUNTER 2019-08-31 08:59 | Day surgery (SDC) | payer MEDICAID ==
[~2019-08-31 08:59] MED LIST changes: +Zoledronic Acid 4 MG in Sodium Chloride 0.9% 100 ML IVPB SCH
[2019-08-31] MEDS ORDERED: Sodium Chloride 0.9% 20 ML ONE (09:18)
== END 2019-08-31 16:04 | disposition home or self-care (01) ==
LOC: ONC/OP 08:59
PROVIDERS: ATTEND Internal Medicine Hematology & Oncology
DX: Z51.11 Encounter for antineoplastic chemotherapy (principal); C50.511 Malignant neoplasm of lower-outer quadrant of right female breast; E83.52 Hypercalcemia
CPT/HCPCS: 96367; 96375; 96413; 96417; J1100; J1642; J2469; J3489; J3490; J7050; J9171; J9306; Q5117

== ENCOUNTER 2019-09-19 08:04 | Outpatient (CLI) | payer OTHER ==
--- NOTE | 2019-09-19 09:24 | CT ---
CT Chest Abd Pelvis W Con HISTORY: Breast cancer with liver and bone metastases. Follow-up. COMPARISON: 06/20/2019 study. FINDINGS: The lungs are clear of any infiltrative process. No pulmonary nodules are identified. There is no significant mediastinal or hilar lymphadenopathy. Right breast mass is no longer appreciated. CT of abdomen performed with contrast enhancement: There is been a significant improvement in the ancelmo earance of the hepatic metastatic disease. Numerous liver lesions were previously demonstrated with central necrotic components now the findings are largely related to the almost a cystic appearance of small subcentimeter nodules. As an example within the posterior aspect of the right lower lobe there is a 1.8 cm nodule now measuring 6 mm in size. There is similar improvement to all of the liver lesions. The spleen pancreas and gallbladder regions all appear unremarkable. Right and left adrenal glands and right and left kidneys are normal in size. There is no significant periaortic or mesenteric lymphadenopathy. CT of pelvis performed with contrast enhancement: A fat-containing paraumbilical hernia is seen. No p elvic lymphadenopathy or mass. Review of osseous structures once again show numerous mainly lytic appearing bone lesions. These lyti c bone lesions now has some more sclerotic components to the margins suggesting underlying therapeutic response. IMPRESSION: 1. Significant improvement to the hepatic lesions. There is been a marked decrease in size with a sig nificant decrease in the solid appearing component, small almost cystic appearance areas are now present replacing the larger hepatic lesions. 2. Sclerotic bony changes developing with the lytic bone lesions also suggesting therapeutic response .
--- NOTE | 2019-09-19 10:20 | MRI ---
Exam: Brain MRI with and without contrast HISTORY: Benign neoplasm of the pituitary gland. History of breast cancer. COMPARISON: 06/22/2019 FINDINGS: Brain MRI: Hemorrhage: No parenchymal hemorrhage. No extra-axial hematoma. Calvarium: Appropriate T1 marrow signal intensity Midline brain parenchyma: Unremarkable Cerebrum:No parenchymal mass, mass effect or midline shift. Brain volume, age-appropriate. Cortical g ray-white matter differentiation is preserved. No significant T2 or FLAIR white matter hyperintensities. There is a solitary FLAIR hyperintensity along the left periventricular white matte r adjacent to the occipital horn and posterior body left lateral ventricle. Ventricles: No evidence of hydrocephalus. Sinuses and mastoid air cells: Adequate aeration Diffusion: Central arterial flow is maintained. Absent restricted diffusion. Postcontrast images:Interval development of a. 0.3 x 0.4 cm enhancing focus involving the left cerebe llar hemisphere. No associated restricted diffusion.. Pituitary MRI: Previously noted sellar/suprasellar enhancing focus is no longer evident. Previously n oted mass effect upon the optic Ozment prechiasmatic optic nerve is resolved. No abnormal signal intensity in the visualized optic nerves. Pituitary stalk is midline. Normal pituitary bright spot. N o evidence of a macroadenoma. Postcontrast images do not demonstrate a microadenoma. IMPRESSION: 1. 0.4 x 0.3 cm enhancing focus in the left cerebellar hemisphere, not definitively appreciated on th e previous exam.. 2. Nonspecific left periventricular white matter FLAIR hyperintensity. No associated restricted diffu curt or enhancement. 3. Interval resolution of previously noted sellar/suprasellar mass.
[2019-09-19] MEDS ORDERED: Iopamidol 370 76% 100 ML VIAL ONE (14:47)
[2019-09-19] MEDS ORDERED: Magnevist 469MG/ML 20 ML VIAL ONE (15:01)
== END 2019-09-19 08:05 | disposition home or self-care (01) ==
LOC: CT 08:04
PROVIDERS: ATTEND Internal Medicine Hematology & Oncology
DX: C50.511 Malignant neoplasm of lower-outer quadrant of right female breast (principal); C79.51 Secondary malignant neoplasm of bone; D35.2 Benign neoplasm of pituitary gland; C78.7 Secondary malignant neoplasm of liver and intrahepatic bile duct; K76.9 Liver disease, unspecified; M89.9 Disorder of bone, unspecified; R90.89 Other abnormal findings on diagnostic imaging of central nervous system
CPT/HCPCS: 70553; 71260; 74177; A9579; Q9967

== ENCOUNTER 2019-10-17 11:37 | Outpatient (CLI) | payer OTHER ==
[~2019-10-17 11:37] MED LIST changes: -DOCEtaxel 140 MG in Sodium Chloride 0.9% 250 ML 250 ML IVPB SCH; +Magnevist 469MG/ML 20 ML VIAL ONE; -Palonosetron HCl 0.25 MG in Sodium Chloride 0.9% 50 ML IVPB SCH; -Pertuzumab 420 MG in Sodium Chloride 0.9% 250 ML 250 ML IVPB SCH; -SODIUM CHLORIDE 0.9% IVPB SCH; -TRASTUZUMAB ANNS IVPB SCH; -Zoledronic Acid 4 MG in Sodium Chloride 0.9% 100 ML IVPB SCH
--- NOTE | 2019-10-17 15:42 | MRI ---
MRI OF BRAIN WITH AND WITHOUT CONTRAST: INDICATION: Malignant neoplasm right breast. Brain lesion seen on prior study. Benign neoplasm of pituitary gla nd. COMPARISON: Comparison is made to MRI of brain 09/19/2019 and 06/22/2019. FINDINGS: Ventricles remain normal size and position. There is no evidence of restricted diffusion. No mass o r edema on FLAIR sequence. Periventricular white matter signal adjacent to the posterior horn is sta ble from prior exam. The pituitary and sella appear unremarkable. A pituitary protocol was followed with axial and sagittal images through the sella turcica with dynam ic enhancement. The pituitary appears normal with normal enhancement. There is no change in the pit uitary from the exam of 09/19/2019. Review of the postcontrast images again shows a small focus of enhancement involving the superior cor tanmay of the left cerebellum unchanged in appearance from 09/19/2019. This continues to measure in the 4 mm range. No other focus of enhancement identified. No interval change from 09/19/2019. IMPRESSION: Stable MRI findings when compared to 09/19/2019. The tiny focus of enhancement in the cortex of the s uperior left cerebellum is unchanged in appearance. No other enhancing abnormality identified. POS: [facility]
== END 2019-10-17 11:38 | disposition home or self-care (01) ==
LOC: MRI 11:37
PROVIDERS: ATTEND Internal Medicine Hematology & Oncology
DX: Z51.11 Encounter for antineoplastic chemotherapy (principal); C50.511 Malignant neoplasm of lower-outer quadrant of right female breast; D35.2 Benign neoplasm of pituitary gland; R93.7 Abnormal findings on diagnostic imaging of other parts of musculoskeletal system; R90.89 Other abnormal findings on diagnostic imaging of central nervous system; Z79.899 Other long term (current) drug therapy
CPT/HCPCS: 70553; 93306; A9579

== ENCOUNTER 2019-12-25 13:31 | Outpatient (CLI) | payer OTHER ==
[2019-12-25] MEDS ORDERED: Magnevist 469MG/ML 20 ML VIAL ONE (15:35)
--- NOTE | 2019-12-25 16:02 | MRI ---
Exam: Brain MRI with and without contrast HISTORY: Malignant neoplasm of lower quadrant of right humeral breast. Hypercalcemia. Benign neoplasm of the pituitary gland. COMPARISON: 10/17/2019, 09/19/2019 FINDINGS: Brain MRI: Hemorrhage: No parenchymal hemorrhage or extra-axial hematoma Calvarium: Appropriate T1 marrow signal intensity Midline brain parenchyma: Unremarkable Cerebrum:No parenchymal mass, mass effect or midline shift. Brain volume, age-appropriate. Cortical g ray-white white matter differentiation is preserved. No significant T2 or FLAIR white matter hyperintensities. Ventricles: No evidence of hydrocephalus. Cerebellum: Subtle multifocal new T2 and FLAIR hyperintensities. Sinuses and mastoid air cells: Adequate aeration Diffusion: Central arterial flow is maintained. Absent restricted diffusion. Postcontrast images:Interval development of a solitary enhancing focus in the lower right frontal sub cortical white matter measuring 0.3 cm. Interval development of multifocal enhancing lesions throughout the entire cerebellum including the cerebellar vermis. [employer] lesion in the left c erebellar hemisphere measures 0.9 x 0.7 cm. Pituitary MRI: Stable partially empty sella. There is no evidence of a microadenoma or macroadenoma. No mass effect upon the optic chiasm and prechiasmatic optic nerve. Pituitary stalk is midline. IMPRESSION: 1. No evidence of a lesion in the sella or suprasellar region. 2. Extensive posterior fossa metastases which has developed since the previous examination. There are numerous enhancing foci throughout the cerebellum. 3. Interval development of a enhancing focus in the right frontal cortex.
== END 2019-12-25 13:32 | disposition home or self-care (01) ==
LOC: MRI 13:31
PROVIDERS: ATTEND Internal Medicine Hematology & Oncology
DX: C50.511 Malignant neoplasm of lower-outer quadrant of right female breast (principal); D35.2 Benign neoplasm of pituitary gland; R90.89 Other abnormal findings on diagnostic imaging of central nervous system; C79.31 Secondary malignant neoplasm of brain
CPT/HCPCS: 70553; A9579

== ENCOUNTER 2020-01-21 09:03 | Outpatient (CLI) | payer OTHER ==
--- NOTE | 2020-01-21 12:38 | CT ---
CT CHEST AND ABDOMEN AND PELVIS WITH IV CONTRAST: Oral contrast was administered. Multiplanar reconstruction. INDICATION: Breast cancer with mets to bone and liver. Status post chemo and radiation. COMPARISON: Comparison is made to CT chest, abdomen, and pelvis 09/19/2019. FINDINGS: CT CHEST: Lung marc remain clear. A tiny 3 mm nodule in the peripheral right upper lobe near the fissure is stable. Mild interstitial prominence is again noted, stable. No effusion or infiltrate. The mediastinum is unremarkable. No adenopathy. There are scattered lytic lesions involving the visualized vertebrae. These are most prominent at th e T12 and T11 vertebrae. These lytic foci with central sclerosis appear stable from the prior exam. No new osseous lesion identified. IMPRESSION: Stable chest CT. CT ABDOMEN AND PELVIS: The numerous low-density liver lesions described previously continue to decrease in number. There ar e a few scattered low-density foci today, although there is significant reduction in number and size of the liver lesions. The visualized lesions today are predominantly subcentimeter with 1 or 2 measu ring in the 1.0 cm range in the axial projection. The spleen and pancreas are unremarkable. Stomach and duodenum unremarkable. Adrenal glands normal. Kidneys unremarkable. Small and large bowel loops unremarkable. The anterior abdominal wall herni a at the umbilicus is again noted and unchanged. Images through the pelvis are unremarkable. Uterus and adnexa unremarkable. Osseous structures unremarkable. There are scattered lytic foci involving the lumbar vertebrae. End plate deformities at L2 and L3 vertebrae are stable. No new lytic or sclerotic bone lesion. IMPRESSION: 1. Continued improvement in the number and size of liver lesions when compared to 09/19/2019. 2. Scattered osseous lesions appear stable. POS: AH
[2020-01-21] MEDS ORDERED: Iopamidol 370 76% 50 ML VIAL FS ONE (13:28)
[2020-01-21] MEDS ORDERED: Iopamidol 370 76% 100 ML VIAL ONE (13:28)
--- NOTE | 2020-01-21 14:10 | NM ---
WHOLE BODY BONE SCAN: HISTORY: Breast cancer RADIOPHARMACEUTICAL: 30 mCi technetium 99m-MDP injected intravenously COMPARISON:06/21/2019 CORRELATION: CT scan of the chest, abdomen and pelvis from today FINDINGS: Increased uptake in the sacrum bilaterally is again seen. There is heterogeneity in the appearance of the ribs. Focally increased uptake in the right second costochondral chondral junction is a benign finding. Focally increased uptake in the right mandible is consistent with periodontal disease. There scattered degenerative activity in the appendicular skeleton. Tracer excretion through the kidneys is within normal limits. IMPRESSION: Stable osseous metastatic disease.
== END 2020-01-21 09:04 | disposition home or self-care (01) ==
LOC: CT 09:03
PROVIDERS: ATTEND Internal Medicine Hematology & Oncology
DX: C50.511 Malignant neoplasm of lower-outer quadrant of right female breast (principal); C79.51 Secondary malignant neoplasm of bone; C78.7 Secondary malignant neoplasm of liver and intrahepatic bile duct; K76.9 Liver disease, unspecified; M89.9 Disorder of bone, unspecified
CPT/HCPCS: 71260; 74177; 78306; A9503

== ENCOUNTER 2020-04-15 08:37 | Outpatient (CLI) | payer OTHER ==
--- NOTE | 2020-04-15 11:05 | CT ---
CT CHEST AND ABDOMEN AND PELVIS WITH IV CONTRAST: Oral contrast was given. Multiplanar reconstruction. INDICATION: Breast cancer. Liver and bone mets. COMPARISON: CT chest, abdomen, and pelvis dated 01/21/2020. FINDINGS: CT CHEST: Lung marc remain clear. No infiltrate or effusion. No pulmonary mass or nodule. Mediastinum is unre markable. No adenopathy. No axillary adenopathy. Nonspecific axillary lymph nodes are stable. Vertebr al bodies maintain height and alignment. End plate deformities are again seen at T7. The lytic foci a t T11 and T12 with central sclerosis appears stable. IMPRESSION: Stable chest CT findings. CT ABDOMEN AND PELVIS: There continues to be regression of the previously noted liver lesions. A tiny low density focus unde r the dome of the diaphragm on the right is subcentimeter. No other definite liver lesions seen today . Spleen and pancreas are unremarkable. Stomach and duodenum unremarkable. Adrenal glands and kidneys unremarkable. Small and large bowel loops unremarkable. Aorta normal caliber. Images through the pelvis show contracted urinary bladder. Uterus and adnexa unremarkable. Review of osseous structures again show end plate deformities in the lumbar vertebra which appear sta ble. Scattered lucent foci which have been previously noted remain stable. No new bone lesion. The anterior abdominal wall hernia at the umbilicus is unchanged in appearance. IMPRESSION: Continued regression of the liver lesions. CT abdomen and pelvis otherwise unremarkable and stable. POS: [facility]
[2020-04-15] MEDS ORDERED: Iopamidol-370 76% 500 ML 1 ML ONE (14:35)
== END 2020-04-15 08:38 | disposition home or self-care (01) ==
LOC: BICCT 08:37
PROVIDERS: ATTEND Internal Medicine Hematology & Oncology
DX: C50.511 Malignant neoplasm of lower-outer quadrant of right female breast (principal); C78.7 Secondary malignant neoplasm of liver and intrahepatic bile duct; K76.9 Liver disease, unspecified
CPT/HCPCS: 71260; 74177; Q9967

== ENCOUNTER 2020-05-20 06:58 | Outpatient (CLI) | payer OTHER ==
[2020-05-20 15:20] LABS: #Eosinphils 0.1 10x3/uL (0.0-0.5); #Monocytes 0.4 10x3/uL (0.0-1.1); #Neutrophils 3.5 10x3/uL (1.5-8.4); %Basophils 0.2 % (0.0-2.0); %Eosinophils 1.5 % (0.0-6.0); %Lymphocytes 15.3 % (18.0-47.0); %Monocytes 8.1 % (0.0-10.0); %Neutrophils 74.5 % (40.0-75.0); Hemoglobin 12.5 g/dL (12.0-16.0); Mean Corpuscular HGB CONC 31.7 G/DL (32.0-36.0); Mean Corpuscular Hemoglobin 26.6 PG (27.0-33.0); Mean Corpuscular Volume 83.8 fl (80.0-100.0); Mean Platelet Volume 10.1 fl (7.4-10.4); Platelet Count 206 10x3/uL (130-400); RBC Distribution Width 12.5 % (11.5-14.5); White Blood Cell (WBC) Count 4.7 10x3/uL (4.5-11.0)
[2020-05-20 15:41] LABS: BHCG - Serum Negative (NEGATIVE); Pregs Control Background? CLEAR/WHITE (CLR/WHITE); Pregs Control Bar Appear? YES (CONTROL BAR)
[2020-05-20 15:44] LABS: Anion Gap 12 mmol/L (10-20); BUN (Urea Nitrogen) 13 mg/dL (7.0-18.7); Calc. Creatinine Clearance 0 mL/min (70-130); Calcium 8.6 mg/dL (7.8-10.44); Carbon Dioxide 28 mmol/L (22-29); Chloride 106 mmol/L (98-107); Estimated GFR-MDRD Greater than 90; Glucose 113 mg/dL (70-105); Potassium 3.9 mmol/L (3.5-5.1); Sodium 142 mmol/L (136-145)
[2020-05-21 13:01] LABS: SARS-CoV-2 MS2 Positive; SARS-CoV-2 N Gene Negative; SARS-CoV-2 S Gene Negative; SARS-CoV-2 by NAA Not Detected (NotDetected); SARS-CoV-2 orf1ab Negative
== END 2020-05-20 06:59 | disposition home or self-care (01) ==
LOC: LABBT 06:58
PROVIDERS: ATTEND Surgery
DX: Z01.812 Encounter for preprocedural laboratory examination (principal); Z20.828 Contact with and (suspected) exposure to other viral communicable diseases; C50.919 Malignant neoplasm of unspecified site of unspecified female breast; K42.9 Umbilical hernia without obstruction or gangrene
CPT/HCPCS: 80048; 84703; 85025; 87635; U0003

== ENCOUNTER 2020-05-20 10:35 | Outpatient (CLI) | payer OTHER ==
--- NOTE | 2020-05-20 13:37 | PET ---
PET W CT Skull to Mid Thigh History: Malignant neoplasm of lower outer quadrant of right female breast, progressed in ipsilateral breast Comparison: CT examination chest abdomen and pelvis April 2020. No prior PET/CT examinations availa ble for review. Findings: PET CT from the skull-mid thigh was performed after the intravenous administration of 12 mC i F-18 FDG. Symmetric bilateral intracranial uptake. No cervical adenopathy. There are 2 separate hypermetabolic folic masses within the right breast which are adjacent to each o ther posterior depth 6:00 within 1 cm of each other with SUV max 12.3. No hypermetabolic axillary adenopathy. No internal mammary adenopathy. No FDG avid pulmonary nodule. Small fat-containing periumbilical hernia. No adenopathy within the abdomen or pelvis. No FDG avid he patic atelectasis. No splenic metastasis. No adrenal metastasis. The skeleton is without FDG avid osseous metastatic disease. Sclerosis within the L2 and T11 vertebra l bodies likely sequelae of treated disease. Impression: 1. Two small masses within the right breast posterior depth 6:00 within 1 cm of each other measuring up to 1.2 cm corresponding to patient's known breast cancer. 2. No evidence for active local regional nena nor distant metastatic disease. 3. Treated osseous metastasis. 4. Small focus of scar within the right middle lobe with adjacent bronchiectasis.
== END 2020-05-20 10:36 | disposition home or self-care (01) ==
LOC: PET 10:35
PROVIDERS: ATTEND Internal Medicine Hematology & Oncology
DX: C50.511 Malignant neoplasm of lower-outer quadrant of right female breast (principal); J98.4 Other disorders of lung; J47.9 Bronchiectasis, uncomplicated
CPT/HCPCS: 78815; 80048; 84703; 85025; 87635; A9552; U0003

== ENCOUNTER 2020-05-23 09:29 | Day surgery (SDC) | payer OTHER ==
[2020-05-22 13:37] VITALS: BMI 23.3
[2020-05-23] MEDS ORDERED: Fentanyl 100 MCG/2 ML VIAL ONE ×4 (09:33→14:49)
[2020-05-23] MEDS ORDERED: Midazolam HCl 2 mg/2 ml Vial ONE ×3 (09:33→11:05)
[2020-05-23] MEDS ORDERED: Acetaminophen 500 MG TAB ONE (10:02)
[2020-05-23] MEDS ORDERED: Ketorolac Tromethamine 30 MG/ML VIAL ONE (10:02)
[2020-05-23] MEDS ORDERED: Lidocaine 1% w/Epinephrine 1:100K 20 ML VIAL ONE (11:57)
[2020-05-23] MEDS ORDERED: Bupivacaine 0.25% HCL 30 ML VIAL ONE (11:57)
[2020-05-23] MEDS ORDERED: Glycopyrrolate 0.2 MG/ML 5 ML SYRINGE ONE (13:10)
[2020-05-23] MEDS ORDERED: Lidocaine 1% PF 5 ML VIAL ONE (13:10)
[2020-05-23] MEDS ORDERED: Rocuronium Bromide 10 MG/ML (10ML VIAL) ONE (13:10)
[2020-05-23] MEDS ORDERED: PHENYLEPHRINE-NS 100 MCG/ML 10 ML SYRINGE ONE (13:10)
[2020-05-23] MEDS ORDERED: Ondansetron PF 4 MG/2 ML Vial ONE (13:10)
[2020-05-23] MEDS ORDERED: diphenhydrAMINE 50 MG/ML VIAL ONE (13:10)
[2020-05-23] MEDS ORDERED: PROPOFOL 200 MG/20 ML VIAL ONE (13:10)
[2020-05-23] MEDS ORDERED: Dexamethasone 20 MG/5 ML VIAL ONE (13:10)
[2020-05-23] MEDS ORDERED: Morphine 2 MG/ML VIAL ONE (14:53)
[2020-05-23] MEDS ORDERED: HYDROmorphone 0.5 MG/0.5 ML SYRINGE ONE ×2 (15:12→16:39)
[2020-05-23] MEDS ORDERED: Acetaminophen 325 MG TAB PO PRN (15:46)
[2020-05-23] MEDS ORDERED: HYDROcodone/Acetaminophen 5/325 mg Tablet PO PRN (15:46)
[2020-05-23] MEDS ORDERED: Morphine 2 MG/ML VIAL SLOW IVP PRN (15:46)
--- NOTE | 2020-05-23 16:55 | PDOC.OP ---
Operative Note - Operative Note Operative Note: PROCEDURE: Umbilical hernia repair with mesh, right simple mastectomy SURGEON: Redd Winter M.D. DATE: 05/23/2020 PREOPERATIVE DIAGNOSIS: Incarcerated umbilical hernia, recurrent right breast cancer POSTOPERATIVE DIAGNOSIS: Incarcerated umbilical hernia, recurrent right breast cancer HISTORY: Patient is a 29-year-old woman with metastatic breast cancer who systemic disease is well controlled. She has developed a recurrent mass in her right breast and simple mastectomy has been recommended for local control. She also has a longstanding symptomatic incarcerated umbilical hernia she would like to have repaired under the same anesthesia. FINDINGS: Umbilical hernia sac densely adherent to the attenuated dermis of the overlying skin. Hernia contained omentum only and fascial defect was under 2 cm. 3 x 5 cm right medial breast mass biopsy-proven recurrent cancer. PROCEDURE IN DETAIL: After informed consent was obtained and appropriate preoperative antibiotics were administered the patient was taken to the operating room she was placed in supine position and general anesthesia was administered. She was prepped and draped in the standard sterile fashion including the abdomen and the right breast in the sterile field. Local anesthesia was infused to the skin and subcutaneous tissues surrounding the umbilical hernia. Dissection was carried down to the hernia sac. When the hernia sac was attempted to be dissected off of the overlying dermis the dermis did not appear to be viable so this was resected in continuity with the hernia sac. The hernia sac was opened and omentum encountered. Adhesions to the hernia sac were taken down but the omentum could not be reduced through the small fascial defect. The incarcerated omentum was ligated and resected following which the omental stump was able to be reduced into the abdominal cavity. The hernia sac was then dissected free circumferentially to the fascia and the fascial edges freed up from the hernia sac. The hernia sac was suture- ligated at the level of the fascial defect and a space created in the preperitoneal space using blunt dissection. A 4.3 cm secure strap mesh was obtained and placed into the preperitoneal space. The fascial defect was closed with interrupted Ethibond sutures incorporating the central strap into the closure. The excess strap was excised and the subcutaneous tissues irrigated and hemostasis obtained using Bovie electrocautery. Subcutaneous tissues were reapproximated with 3-0 Monocryl sutures and the skin closed in a stellate manner using subcuticular 4-0 Monocryl sutures to recreate an umbilicus. Dermabond dressings were placed and a cottonball and Tegaderm pressure dressing placed once the Dermabond was dry. Attention was then turned to the right simple mastectomy. A transverse elliptical incision was created overlying the breast mass including the nipple areolar complex. Flaps were raised medially to the edge of the sternum, superiorly to the clavicle, and inferiorly to the rectus sheath. The breast was resected from medial to lateral including the pectoralis fascia with the specimen. Care was taken to maintain the dissection superficial to the true axilla as dissection was carried out lateral to the pectoralis muscle. The breast was marked with a long lateral suture and sent to pathology. The wound was irrigated and hemostasis obtained using Bovie electrocautery. JAYDEN drain was placed exiting inferolaterally and secured to the skin, and the exit site dressed with a drain sponge and Tegaderm dressing. The JAYDEN drain was placed under the mastectomy flaps and the deep dermal tissues were reapproximated with interrupted [id number] 3-0 Vicryl sutures. The skin was then closed with a running subcuticular 4-0 Monocryl suture. Dermabond dressings were placed and once this was dry a fluff dressing was placed to the chest wall and secured with an Smith wrap. The patient was extubated and taken to recovery in good condition. Estimate blood loss was minimal. There were no complications. Specimen is right breast.
[2020-05-23] MEDS: traMADol HCl 50 MG TAB PO SCH ×2 (19:27→20:53)
[2020-05-23] MEDS: Morphine 4 MG/ML VIAL SLOW IVP PRN (20:54)
[2020-05-23] MEDS: HYDROcodone/Acetaminophen 5/325 mg Tablet PO PRN (22:09)
[2020-05-24] MEDS: Morphine 4 MG/ML VIAL SLOW IVP PRN (03:40)
[2020-05-24] MEDS: HYDROcodone/Acetaminophen 5/325 mg Tablet PO PRN ×3 (03:41→16:00)
[2020-05-24] MEDS: traMADol HCl 50 MG TAB PO SCH ×2 (08:41→13:43)
[2020-05-24 11:31] VITALS: BP 111/74; TEMP 97.6
== END 2020-05-24 16:14 | disposition home or self-care (01) ==
LOC: SDC 09:29 → ONC 15:15 → SDC 05-24 16:14
PROVIDERS: ATTEND Surgery
PROC: 0WUF0JZ Supplement Abdominal Wall with Synthetic Substitute, Open Approach (ICD-10-PCS; principal; 2020-05-23)
PROC: 0HTT0ZZ Resection of Right Breast, Open Approach (ICD-10-PCS; principal; 2020-05-23)
DX: C50.311 Malignant neoplasm of lower-inner quadrant of right female breast (principal); K42.0 Umbilical hernia with obstruction, without gangrene; Z17.1 Estrogen receptor negative status [ER-]; Z79.899 Other long term (current) drug therapy
CPT/HCPCS: 88309; J0690; J1100; J1170; J1200; J1885; J2250; J2270; J2405; J2704; J3010; S0020

== ENCOUNTER 2020-06-12 13:06 | Outpatient (CLI) | payer OTHER ==
[2020-06-12] MEDS ORDERED: Magnevist 469MG/ML 20 ML VIAL ONE (13:12)
--- NOTE | 2020-06-12 18:06 | MRI ---
MRI BRAIN WITH AND WITHOUT CONTRAST: DATE: 06/12/20 HISTORY: 29-year-old female with brain metastases from breast cancer, C79.31, status post radiation therapy to the brain. Restaging. COMPARISON: 02/26/20 TECHNIQUE: Multiple sequences obtained in axial, sagittal, and coronal planes; pre and post IV injection of gado linium-based contrast agent. FINDINGS: There are no enhancing intra-axial lesions in the cerebrum, brainstem, or cerebellum. There are mild T2 and FLAIR hyperintensities in 2 focal regions in the deep cerebral white matter, lo cated in the bilateral parietal rivas radiata/ centrum semiovale, left greater than right, which hav e become larger than on previous MRI. The current left sided lesion is approximately 1.5 x 1 cm. Ther e has been no other interval change. The ventricles are normal in size and position. No restricted di ffusion, recent or remote intra-axial hemorrhage, mass effect, midline shift or extra-axial fluid col lection. IMPRESSION: 1. No evidence of currently active intracranial metastatic disease. 2. Mild worsening of mild changes in the bilateral parietal deep cerebral white matter, consiste nt with mild post radiation chronic ischemic white matter changes. KHURRAM Finn POS: JIN
== END 2020-06-12 13:07 | disposition home or self-care (01) ==
LOC: MRI 13:06
PROVIDERS: ATTEND Radiology Radiation Oncology
DX: C79.31 Secondary malignant neoplasm of brain (principal); C50.919 Malignant neoplasm of unspecified site of unspecified female breast; G93.89 Other specified disorders of brain
CPT/HCPCS: 70553; A9579

== ENCOUNTER 2020-08-06 12:37 | Outpatient (CLI) | payer OTHER ==
[~2020-08-06 12:37] MED LIST changes: +Iopamidol 370 76% 100 ML VIAL ONE; -Magnevist 469MG/ML 20 ML VIAL ONE
--- NOTE | 2020-08-06 14:39 | CT ---
CT CHEST, ABDOMEN AND PELVIS PERFORMED WITH INTRAVENOUS CONTRAST ENHANCEMENT: 08/06/20 HISTORY: Breast cancer, liver and bone mets. COMPARISON: A 04/15/2020 exam. The lungs are clear of infiltrates. No pulmonary nodule is identified. No pleural effusion. Thyroid is normal in size/. No significant mediastinal or hilar adenopathy. Thoracic aorta is normal in caliber. CT OF THE ABDOMEN PERFORMED WITH CONTRAST ENHANCEMENT: The liver is normal in appearance. A small hypodensity seen in the dome of the liver on the previous examination is not definitely appreciated on this exam. The spleen, pancreas and gallbladder regions appear unremarkable. Right and left adrenal glands and right and left kidneys are normal in size. No significant periaorti c or mesenteric adenopathy. No obstruction or any bowel wall findings. CT OF PELVIS PERFORMED WITH CONTRAST ENHANCEMENT: No adenopathy, mass, or free fluid. There is review of osseous structures show the end plate vertebr al body changes in the lumbar spine remains stable. Areas of slight lucency is seen in both the righ t and left iliac bones is of similar appearance to the previous exam. Post right mastectomy changes are seen. IMPRESSION: 1. The small hypodensity in the dome of the liver is no longer visualized on this examination. O verall stable examination without evidence of any metastases. Stable bony changes as compared to the previous exam. POS: JOSELUIS
== END 2020-08-06 12:38 | disposition home or self-care (01) ==
LOC: BICCT 12:37
PROVIDERS: ATTEND Internal Medicine Hematology & Oncology
DX: C79.51 Secondary malignant neoplasm of bone (principal); C78.7 Secondary malignant neoplasm of liver and intrahepatic bile duct; C50.511 Malignant neoplasm of lower-outer quadrant of right female breast
CPT/HCPCS: 71260; 74177; Q9967

== ENCOUNTER 2020-08-12 14:21 | Outpatient (CLI) | payer OTHER ==
--- NOTE | 2020-08-12 15:06 | MMO ---
Left Breast MAMMO Unilat Diag DDI LT+MARC. CLINICAL HISTORY: Patient is 29 years old and is seen for diagnostic exam and pain in the sub-areolar region of the left breast. The patient has no family history of breast cancer. The patient has a history of right Mastectomy in May, and right Excisional Biopsy in May, - invasive ductal carcinoma. VIEWS: The views performed were: bilateral craniocaudal with tomosynthesis; bilateral mediolateral oblique with tomosynthesis; and bilateral mediolateral with tomosynthesis. FILMS COMPARED: The present examination has been compared to prior imaging studies performed at [facility] on 05/28/2019, 05/30/2019 and 08/12/2020. This study has been interpreted with the assistance of computer-aided detection. MAMMOGRAM FINDINGS: The breast is heterogeneously dense, which could obscure a lesion on mammography. No mammo or sono abnormality in seen in the left retroaerolar region (site of pain) There are no suspicious masses, suspicious calcifications, or new areas of architectural distortion. IMPRESSION: THERE IS NO MAMMOGRAPHIC EVIDENCE OF MALIGNANCY. A ROUTINE FOLLOW-UP MAMMOGRAM IN 1 YEAR IS RECOMMENDED. THE RESULTS OF THIS EXAM WERE SENT TO THE PATIENT. ACR BI-RADS Category 2 - Benign finding MAMMOGRAPHY NOTE: 1. A negative mammogram report should not delay a biopsy if a dominant of clinically suspicious mass is present. 2. Approximately 10% to 15% of breast cancers are not detected by mammography. 3. Adenosis and dense breasts may obscure an underlying neoplasm. Reported by: BART BREAUX MD Electonically Signed: [id number]
--- NOTE | 2020-08-12 15:27 | ULT ---
CORRELATION: Correlation was made with the mammogram of same date. POS: OFF
--- NOTE | 2020-08-13 07:10 | ULT ---
LIMITED LEFT BREAST ULTRASOUND: HISTORY: A 29-year-old female with right breast cancer and mastectomy with left nipple pain. FINDINGS: Correlation was made with the mammogram of same date. POS: OFF
== END 2020-08-12 14:22 | disposition home or self-care (01) ==
LOC: BICMAMMO 14:21
PROVIDERS: ATTEND Internal Medicine Hematology & Oncology
DX: Z08 Encounter for follow-up examination after completed treatment for malignant neoplasm (principal); Z85.3 Personal history of malignant neoplasm of breast
CPT/HCPCS: G0279

== ENCOUNTER 2020-09-16 09:00 | Outpatient (CLI) | payer OTHER ==
[2020-09-16] MEDS ORDERED: Magnevist 469MG/ML 20 ML VIAL ONE (11:48)
== END 2020-09-16 09:01 | disposition home or self-care (01) ==
LOC: MRI 09:00
PROVIDERS: ATTEND Radiology Radiation Oncology
DX: C50.919 Malignant neoplasm of unspecified site of unspecified female breast (principal); C79.31 Secondary malignant neoplasm of brain; G93.9 Disorder of brain, unspecified
CPT/HCPCS: 70553

== ENCOUNTER 2020-11-04 09:14 | Outpatient (CLI) | payer OTHER ==
[2020-11-04] MEDS ORDERED: Iopamidol-370 76% 500 ML 1 ML ONE (09:38)
== END 2020-11-04 09:15 | disposition home or self-care (01) ==
LOC: BICCT 09:14
PROVIDERS: ATTEND Internal Medicine Hematology & Oncology
DX: C50.511 Malignant neoplasm of lower-outer quadrant of right female breast (principal); C79.51 Secondary malignant neoplasm of bone; C78.7 Secondary malignant neoplasm of liver and intrahepatic bile duct; K76.89 Other specified diseases of liver; Z90.11 Acquired absence of right breast and nipple
CPT/HCPCS: 71260; 74177; 80053; 86300; Q9967

== ENCOUNTER 2020-11-19 12:34 | Outpatient (CLI) | payer OTHER ==
[2020-11-19] MEDS ORDERED: Magnevist 469MG/ML 20 ML VIAL ONE (13:55)
== END 2020-11-19 12:35 | disposition home or self-care (01) ==
LOC: MRI 12:34
PROVIDERS: ATTEND Radiology Radiation Oncology
DX: C50.919 Malignant neoplasm of unspecified site of unspecified female breast (principal); C79.31 Secondary malignant neoplasm of brain
CPT/HCPCS: 70553; A9579

== ENCOUNTER 2020-12-18 12:43 | Outpatient (CLI) | payer OTHER | END 2020-12-18 12:44 | disposition home or self-care (01) | LOC: ULT 12:43 | PROVIDERS: ATTEND Internal Medicine Hematology & Oncology | DX: Z51.11 Encounter for antineoplastic chemotherapy (principal); C50.511 Malignant neoplasm of lower-outer quadrant of right female breast; I07.1 Rheumatic tricuspid insufficiency; I37.1 Nonrheumatic pulmonary valve insufficiency | CPT/HCPCS: 93306 ==

== ENCOUNTER 2021-02-18 11:58 | Outpatient (CLI) | payer OTHER ==
[~2021-02-18 11:58] MED LIST changes: -Iopamidol 370 76% 100 ML VIAL ONE; +Magnevist 469MG/ML 20 ML VIAL ONE
== END 2021-02-18 11:59 | disposition home or self-care (01) ==
LOC: MRI 11:58
PROVIDERS: ATTEND Radiology Radiation Oncology
DX: C79.31 Secondary malignant neoplasm of brain (principal); C50.919 Malignant neoplasm of unspecified site of unspecified female breast; Z92.3 Personal history of irradiation; Z92.21 Personal history of antineoplastic chemotherapy
CPT/HCPCS: 70553; A9579

== ENCOUNTER 2021-03-10 08:36 | Outpatient (CLI) | payer OTHER ==
[2021-03-10] MEDS ORDERED: Iopamidol-370 76% 500 ML 1 ML ONE (08:55)
== END 2021-03-10 08:37 | disposition home or self-care (01) ==
LOC: BICCT 08:36
PROVIDERS: ATTEND Internal Medicine Hematology & Oncology
DX: C50.511 Malignant neoplasm of lower-outer quadrant of right female breast (principal); C79.51 Secondary malignant neoplasm of bone; C78.7 Secondary malignant neoplasm of liver and intrahepatic bile duct; Z90.11 Acquired absence of right breast and nipple
CPT/HCPCS: 71260; 74177; Q9967

== ENCOUNTER 2021-04-20 12:37 | Outpatient (CLI) | payer OTHER | END 2021-04-20 12:38 | disposition home or self-care (01) | LOC: ULT 12:37 | PROVIDERS: ATTEND Internal Medicine Hematology & Oncology | DX: Z51.11 Encounter for antineoplastic chemotherapy (principal); C50.511 Malignant neoplasm of lower-outer quadrant of right female breast; D35.2 Benign neoplasm of pituitary gland; E83.52 Hypercalcemia; I07.1 Rheumatic tricuspid insufficiency | CPT/HCPCS: 93306 ==

== ENCOUNTER 2021-05-21 10:03 | Outpatient (CLI) | payer OTHER | END 2021-05-21 10:04 | disposition home or self-care (01) | LOC: MRI 10:03 | PROVIDERS: ATTEND Radiology Radiation Oncology | DX: C50.919 Malignant neoplasm of unspecified site of unspecified female breast (principal); C79.31 Secondary malignant neoplasm of brain | CPT/HCPCS: 70553 ==

== ENCOUNTER 2021-06-01 08:44 | Outpatient (CLI) | payer OTHER ==
[2021-06-01] MEDS ORDERED: Iopamidol 370 76% 100 ML VIAL ONE (09:42)
== END 2021-06-01 08:45 | disposition home or self-care (01) ==
LOC: CT 08:44
PROVIDERS: ATTEND Internal Medicine Hematology & Oncology
DX: C50.511 Malignant neoplasm of lower-outer quadrant of right female breast (principal); C78.7 Secondary malignant neoplasm of liver and intrahepatic bile duct; C79.51 Secondary malignant neoplasm of bone; D35.2 Benign neoplasm of pituitary gland; E83.52 Hypercalcemia
CPT/HCPCS: 71260; 74177

== ENCOUNTER 2021-08-17 10:06 | Outpatient (CLI) | payer OTHER | END 2021-08-17 10:07 | disposition home or self-care (01) | LOC: MRI 10:06 | PROVIDERS: ATTEND Radiology Radiation Oncology | DX: C50.919 Malignant neoplasm of unspecified site of unspecified female breast (principal); Z92.3 Personal history of irradiation | CPT/HCPCS: 70553; A9579 ==

== ENCOUNTER 2021-08-20 12:53 | Outpatient (CLI) | payer OTHER | END 2021-08-20 12:54 | disposition home or self-care (01) | LOC: ULT 12:53 | PROVIDERS: ATTEND Internal Medicine Hematology & Oncology | DX: Z51.11 Encounter for antineoplastic chemotherapy (principal); C50.511 Malignant neoplasm of lower-outer quadrant of right female breast; Z79.899 Other long term (current) drug therapy; I07.1 Rheumatic tricuspid insufficiency | CPT/HCPCS: 93306 ==

== ENCOUNTER 2021-11-16 11:34 | Outpatient (CLI) | payer OTHER | END 2021-11-16 11:35 | disposition home or self-care (01) | LOC: MRI 11:34 | PROVIDERS: ATTEND Radiology Radiation Oncology | DX: C50.919 Malignant neoplasm of unspecified site of unspecified female breast (principal); C79.31 Secondary malignant neoplasm of brain | CPT/HCPCS: 70553; A9579 ==

== ENCOUNTER 2022-02-02 08:52 | Outpatient (CLI) | payer OTHER ==
[2022-02-02] MEDS ORDERED: Iopamidol-370 76% 500 ML 1 ML ONE (11:38)
== END 2022-02-02 08:53 | disposition home or self-care (01) ==
LOC: BICCT 08:52
PROVIDERS: ATTEND Internal Medicine Hematology & Oncology
DX: C78.7 Secondary malignant neoplasm of liver and intrahepatic bile duct (principal); C79.51 Secondary malignant neoplasm of bone; C50.511 Malignant neoplasm of lower-outer quadrant of right female breast; D35.2 Benign neoplasm of pituitary gland; Z90.11 Acquired absence of right breast and nipple
CPT/HCPCS: 71260; 74177; Q9967

== ENCOUNTER 2022-02-16 12:33 | Outpatient (CLI) | payer OTHER | END 2022-02-16 12:34 | disposition home or self-care (01) | LOC: ULT 12:33 | PROVIDERS: ATTEND Internal Medicine Hematology & Oncology | DX: Z51.11 Encounter for antineoplastic chemotherapy (principal); C50.919 Malignant neoplasm of unspecified site of unspecified female breast; I08.3 Combined rheumatic disorders of mitral, aortic and tricuspid valves; Z79.899 Other long term (current) drug therapy | CPT/HCPCS: 93306 ==

== ENCOUNTER 2022-05-17 08:20 | Outpatient (CLI) | payer OTHER ==
[2022-05-17] MEDS ORDERED: Iopamidol 370 76% 100 ML VIAL ONE (14:07)
== END 2022-05-17 08:21 | disposition home or self-care (01) ==
LOC: CT 08:20
PROVIDERS: ATTEND Internal Medicine Hematology & Oncology
DX: C50.511 Malignant neoplasm of lower-outer quadrant of right female breast (principal); C22.9 Malignant neoplasm of liver, not specified as primary or secondary; C79.51 Secondary malignant neoplasm of bone
CPT/HCPCS: 71260; 74177; Q9967

== ENCOUNTER 2022-06-04 12:42 | Outpatient (CLI) | payer OTHER | END 2022-06-04 12:43 | disposition home or self-care (01) | LOC: ULT 12:42 | PROVIDERS: ATTEND Internal Medicine Hematology & Oncology | DX: Z51.11 Encounter for antineoplastic chemotherapy (principal); C50.511 Malignant neoplasm of lower-outer quadrant of right female breast; E83.52 Hypercalcemia; I07.1 Rheumatic tricuspid insufficiency; I37.1 Nonrheumatic pulmonary valve insufficiency; Z79.899 Other long term (current) drug therapy | CPT/HCPCS: 93306 ==

== ENCOUNTER 2022-07-07 11:22 | Outpatient (CLI) | payer OTHER ==
[2022-07-07 12:32] LABS: #Eosinphils 0.1 10x3/uL (0.0-0.5); #Monocytes 0.4 10x3/uL (0.0-1.1); %Basophils 0.7 % (0.0-2.0); %Eosinophils 2.5 % (0.0-6.0); %Lymphocytes 20.6 % (18.0-47.0); %Monocytes 9.1 % (0.0-10.0); %Neutrophils 66.9 % (40.0-75.0); Hemoglobin 13.1 g/dL (12.0-15.5); Mean Corpuscular HGB CONC 31.7 g/dL (32.0-36.0); Mean Corpuscular Hemoglobin 27.6 pg (27.0-33.0); Mean Corpuscular Volume 86.9 fl (81.6-98.3); Mean Platelet Volume 10.2 fl (7.4-10.4); Platelet Count 276 10x3/uL (150-450); RBC Distribution Width 13.6 % (11.5-14.5); Red Blood Cell (RBC) Count 4.75 10x6/uL (3.90-5.03); White Blood Cell (WBC) Count 4.4 10x3/uL (3.5-10.5)
[2022-07-07 12:44] LABS: BHCG - Serum Negative (NEGATIVE); Pregs Control Background? CLEAR/WHITE (CLR/WHITE); Pregs Control Bar Appear? YES (CONTROL BAR)
[2022-07-07 12:49] LABS: Anion Gap 11 mmol/L (10-20); BUN (Urea Nitrogen) 7 mg/dL (7.0-18.7); Calc. Creatinine Clearance 0 mL/min (70-130); Calcium 9.5 mg/dL (7.8-10.44); Carbon Dioxide 27 mmol/L (22-29); Chloride 108 mmol/L (98-107); Estimated GFR 119; Glucose 92 mg/dL (70-105); Potassium 3.9 mmol/L (3.5-5.1); Sodium 142 mmol/L (136-145)
== END 2022-07-07 11:23 | disposition home or self-care (01) ==
LOC: LABBT 11:22
PROVIDERS: ATTEND Surgery
DX: Z01.812 Encounter for preprocedural laboratory examination (principal); C50.919 Malignant neoplasm of unspecified site of unspecified female breast
CPT/HCPCS: 80048; 84703; 85025

== ENCOUNTER 2022-07-09 06:14 | Day surgery (SDC) | payer OTHER ==
[2022-07-08 08:52] VITALS: BMI 22.1
[2022-07-09] MEDS ORDERED: Acetaminophen 500 MG TAB ONE (06:38)
[2022-07-09] MEDS ORDERED: Bupivacaine/Epinephrine 0.25% 30 ML VIAL ONE (06:38)
[2022-07-09] MEDS ORDERED: Sodium Chloride 0.9% 100 ML ONE (06:38)
[2022-07-09] MEDS ORDERED: Lidocaine 1% (PF) 30 ML VIAL ONE (06:38)
[2022-07-09] MEDS ORDERED: CEFAZOLIN 2 GM VIAL ONE (06:38)
[2022-07-09] MEDS ORDERED: Dexmedetomidine 200 MCG/2 ML VIAL ONE (07:32)
[2022-07-09] MEDS ORDERED: Fentanyl 250 MCG/5 ML VIAL ONE (07:32)
[2022-07-09] MEDS ORDERED: Ketorolac Tromethamine 30 MG/ML VIAL ONE (08:14)
[2022-07-09] MEDS ORDERED: Ondansetron PF 4 MG/2 ML Vial ONE (08:14)
[2022-07-09] MEDS ORDERED: ePHEDrine 50 MG/ML VIAL ONE (08:14)
[2022-07-09] MEDS ORDERED: PROPOFOL 200 MG/20 ML VIAL ONE (08:14)
[2022-07-09] MEDS ORDERED: Dexamethasone 20 MG/5 ML VIAL ONE (08:14)
[2022-07-09] MEDS ORDERED: Fentanyl 100 MCG/2 ML VIAL ONE ×2 (09:15→09:40)
== END 2022-07-09 10:30 | disposition home or self-care (01) ==
LOC: SDC 06:14
PROVIDERS: ATTEND Surgery
PROC: 02HV33Z Insertion of Infusion Device into Superior Vena Cava, Percutaneous Approach (ICD-10-PCS; principal; 2022-07-09)
PROC: 0JH60WZ Insertion of Totally Implantable Vascular Access Device into Chest Subcutaneous Tissue and Fascia, Open Approach (ICD-10-PCS; principal; 2022-07-09)
DX: C50.911 Malignant neoplasm of unspecified site of right female breast (principal); C79.9 Secondary malignant neoplasm of unspecified site; M79.7 Fibromyalgia; Z79.899 Other long term (current) drug therapy
CPT/HCPCS: 71045; C1788; J1100; J1642; J1885; J2001; J2405; J2704; J3010; J3490

== ENCOUNTER 2022-08-30 10:06 | Outpatient (CLI) | payer OTHER | END 2022-08-30 10:07 | disposition home or self-care (01) | LOC: MRI 10:06 | PROVIDERS: ATTEND Radiology Radiation Oncology | DX: C79.31 Secondary malignant neoplasm of brain (principal); C50.919 Malignant neoplasm of unspecified site of unspecified female breast | CPT/HCPCS: 70553; A9579 ==

== ENCOUNTER 2022-10-01 12:53 | Outpatient (CLI) | payer OTHER | END 2022-10-01 12:54 | disposition home or self-care (01) | LOC: BICMAMMO 12:53 | PROVIDERS: ATTEND Internal Medicine Hematology & Oncology | DX: C50.511 Malignant neoplasm of lower-outer quadrant of right female breast (principal); E83.52 Hypercalcemia; N64.4 Mastodynia; R92.8 Other abnormal and inconclusive findings on diagnostic imaging of breast; N63.20 Unspecified lump in the left breast, unspecified quadrant; Z91.89 Other specified personal risk factors, not elsewhere classified | CPT/HCPCS: G0279 ==

== ENCOUNTER 2022-10-12 07:59 | Outpatient (CLI) | payer OTHER ==
[2022-10-12 08:57] LABS: BHCG - Serum Negative (NEGATIVE); Pregs Control Background? CLEAR/WHITE (CLR/WHITE); Pregs Control Bar Appear? YES (CONTROL BAR)
[2022-10-12] MEDS ORDERED: Iopamidol 370 76% 100 ML VIAL ONE (09:42)
== END 2022-10-12 08:00 | disposition home or self-care (01) ==
LOC: NM 07:59
PROVIDERS: ATTEND Internal Medicine Hematology & Oncology
DX: C50.511 Malignant neoplasm of lower-outer quadrant of right female breast (principal); C79.51 Secondary malignant neoplasm of bone; D22.9 Melanocytic nevi, unspecified; D35.2 Benign neoplasm of pituitary gland; E83.52 Hypercalcemia
CPT/HCPCS: 71260; 74177; 78306; 84703; A9503; J1642

== ENCOUNTER 2023-01-05 10:05 | Outpatient (CLI) | payer OTHER | END 2023-01-05 10:06 | disposition home or self-care (01) | LOC: MRI 10:05 | PROVIDERS: ATTEND Radiology Radiation Oncology | DX: C79.31 Secondary malignant neoplasm of brain (principal); C50.919 Malignant neoplasm of unspecified site of unspecified female breast | CPT/HCPCS: 70553 ==

== ENCOUNTER 2023-02-22 09:32 | Outpatient (CLI) | payer OTHER | END 2023-02-22 09:33 | disposition home or self-care (01) | LOC: CT 09:32 | PROVIDERS: ATTEND Internal Medicine Hematology & Oncology | DX: C50.511 Malignant neoplasm of lower-outer quadrant of right female breast (principal); C22.9 Malignant neoplasm of liver, not specified as primary or secondary; C79.51 Secondary malignant neoplasm of bone | CPT/HCPCS: 71260; 74177; 78306; A9503 ==